=== PATIENT | male | born 1960 | race Hispanic/Latino ===

== ENCOUNTER 2019-12-18 07:06 | Outpatient (CLI) | payer OTHER, SELFPAY ==
[2019-12-18 07:56] LABS: Basophils Percent Auto 0.3 % (0.2-1.2); Eosinophils Absolute Auto 0.1 K/mm3 (0-0.3); Hematocrit 43.5 % (42.0-52.0); Hemoglobin 15.2 g/dL (14.0-18.0); Immature Platelet Fraction Pct 10.6 % (0.9-11.2); Lymphocytes Absolute Auto 1.14 K/mm3 (0.9-3.2); Lymphocytes Percent Auto 33.3 % (18.3-44.2); Mean Corpuscular HGB Conc 34.9 g/dl (32-36); Mean Corpuscular Volume 94.4 fl (80-100); Monocytes Absolute Auto 0.4 K/mm3 (0.1-0.6); Monocytes Percent Auto 11.4 % (2.6-8.5); Neutrophils Absolute Auto 1.8 K/mm3 (1.3-6.7); Platelet Count Result 73 k/mm3 (150-375); Red Blood Count 4.61 M/mm3 (4.6-6.20); Red Cell Distribution Width 12.5 % (11.5-14.5); White Blood Count 3.4 K/mm3 (4.5-10.0)
[2019-12-18 08:07] LABS: Cholesterol 177 mg/dL (0-200); HDL Direct 55 mg/dL; Triglycerides 376 mg/dL (<150)
[2019-12-18 08:19] LABS: LDL Cholesterol Direct 59 mg/dL
== END 2019-12-18 07:07 | disposition home or self-care (01) ==
PROVIDERS: PCP Family Medicine; Visit Provider Family Medicine
DX: D69.6 Thrombocytopenia, unspecified (principal); E11.9 Type 2 diabetes mellitus without complications
CPT/HCPCS: 36415; 80061; 85025; 85055

== ENCOUNTER 2019-12-29 07:31 | Outpatient (CLI) | payer OTHER, SELFPAY ==
--- NOTE | ~2019-12-29 | US_ITS ---
EXAMINATION: US abdomen complete EXAM DATE: 12/29/2019 08:31 INDICATION: Thrombocytopenia. TECHNIQUE: Multiple grayscale and Doppler images of the complete abdomen were obtained (by a technolo gist who performed the scan) and subsequently reviewed. There is no prior study for comparison. FINDINGS: The abdominal aorta is normal in caliber. Visualized portion IVC is patent. The pancreatic head a nd body are normal in appearance. The pancreatic tail is not visualized. There is heterogeneous liver parenchymal echogenicity with nodular contour, consistent with cirrhosis . 4 acoustic window for evaluating the liver. There are no focal liver lesions identified. There i s no evidence of intrahepatic biliary duct dilation. Portal venous flow was seen in the hepatopedal, normal direction and has normal Doppler waveform. Common bile duct measures 3 mm, which is normal. The gallbladder wall is normal in thickness, with ex pected amount of distention. No sonographic evidence of pericholecystic fluid. There is no cholelit hiases. Technologist performing exam reports patient did not demonstrate sonographic Oneill's sign. Please note that this sign is less reliable in patients who have received pain medication. Right kidney: There is normal contour and echogenicity. It measures 12.8 x 6.4 x 6.4 centimeters. There are no focal renal lesions identified. There is no hydronephrosis. Left kidney: There is normal contour and echogenicity. It measures 12.5 x 4.4 x 6.2 centimeters. T here are no focal renal lesions identified. There is no hydronephrosis. The spleen measures 14 centimeters, borderline enlarged. IMPRESSION: 1. Borderline splenomegaly. 2. Cirrhosis. Reviewed, dictated and finalized at location A.
== END 2019-12-29 07:32 | disposition home or self-care (01) ==
PROVIDERS: PCP Family Medicine; Visit Provider Family Medicine
DX: D69.6 Thrombocytopenia, unspecified (principal); K76.0 Fatty (change of) liver, not elsewhere classified; K74.69 Other cirrhosis of liver
CPT/HCPCS: 76700

== ENCOUNTER 2020-01-14 16:18 | Outpatient (CLI) | payer OTHER, SELFPAY ==
[2020-01-14 16:44] LABS: Basophils Percent Auto 0.3 % (0.2-1.2); Eosinophils Absolute Auto 0.1 K/mm3 (0-0.3); Hematocrit 42.6 % (42.0-52.0); Hemoglobin 14.7 g/dL (14.0-18.0); Lymphocytes Absolute Auto 0.93 K/mm3 (0.9-3.2); Lymphocytes Percent Auto 30.9 % (18.3-44.2); Mean Corpuscular HGB Conc 34.5 g/dl (32-36); Mean Corpuscular Hemoglobin 32.5 pg (26-34); Mean Corpuscular Volume 94.2 fl (80-100); Mean Platelet Volume 12.8 fl (7.4-10.4); Monocytes Absolute Auto 0.3 K/mm3 (0.1-0.6); Monocytes Percent Auto 11.3 % (2.6-8.5); Neutrophils Absolute Auto 1.7 K/mm3 (1.3-6.7); Neutrophils Percent Auto 55.5 % (45.5-73.1); Platelet Count Result 85 k/mm3 (150-375); Red Blood Count 4.52 M/mm3 (4.6-6.20); Red Cell Distribution Width 12.6 % (11.5-14.5)
[2020-01-14 16:55] LABS: Alanine Aminotransferase 80 U/L (4-50); Albumin Level 4.2 g/dL (3.5-5.1); Alkaline Phosphatase 116 U/L (38-126); Anion Gap 5 mmol/L (8-16); Aspartate Amino Transferase 76 U/L (17-59); Blood Urea Nitrogen 13 mg/dL (9-20); Calcium 8.9 mg/dL (8.4-10.2); Carbon Dioxide 28 mmol/L (22-30); Chloride 106 mmol/L (98-107); Estimated Glomerular Filt Rate > 60; Glucose 106 mg/dL (75-110); Potassium 4.2 mmol/L (3.4-5.0); Sodium 139 mmol/L (137-145)
== END 2020-01-14 16:19 | disposition home or self-care (01) ==
PROVIDERS: PCP Family Medicine; Visit Provider Physician Assistant
DX: K74.60 Unspecified cirrhosis of liver (principal); D69.6 Thrombocytopenia, unspecified
CPT/HCPCS: 36415; 80053; 85025

== ENCOUNTER 2021-01-21 07:36 | Outpatient (CLI) | payer BC, SELFPAY | END 2021-01-22 | disposition home or self-care (01) | LOC: ANHCSM 07:36 | PROVIDERS: PCP Internal Medicine; Visit Provider Internal Medicine | DX: G47.33 Obstructive sleep apnea (adult) (pediatric) (principal) | CPT/HCPCS: 95810; 99199 ==

== ENCOUNTER 2021-01-29 08:07 | Outpatient (CLI) | payer BC, SELFPAY ==
--- NOTE | 2021-02-25 18:44 | WPDSLEEPSTUD ---
Sleep Study Date of Study: 01/29/21 Ordering Provider: Bhupendra Barr DO Interpreting Physician: Estela Mccabe MD Sleep Study Type: CPAP Titration Height: 1.73 m Weight: 86.674 kg Body Mass Index: 29.0 Neck Circumference (inches): 17 [place]: 14 Reason for Sleep Study Obstructive sleep apnea; hypersomnia Sleep History Vikas Iverson is a 60 year old man with a history of obstructive sleep apnea, and he has used CPAP for over 15 years, currently at 10 cm water pressure. On CPAP, he does not wake at night feeling short of breath, does not wake with heartburn symptoms, loud snoring, sweating excessively at night or noticing his heart beating rapidly at night. He occasionally falls asleep during the day, occasionally falls asleep involuntarily, but never falls asleep while driving. He does not have loss of muscle tone with strong emotion. He does not have problems with daytime functioning due to excessive sleepiness while wearing CPAP. He does not feel paralyzed on waking or falling asleep. He rarely has vivid dream like scenes on waking or falling asleep. He is not afraid to go to sleep, does not have nightmares. He rarely remembers his dreams. He occasionally has racing thoughts. He does not feel sad or depressed. He occasionally feels anxiety. He occasionally has muscle tension, notices parts of his body jerking, and occasionally kicks at night. He does not has uncomfortable or achy feelings in his legs at night. He occasionally has leg pain at night. He denies morning jaw pain. He does not grind his teeth at night. He does not have pain in the day, and is not awakened by pain at night. He rarely wakes up feeling stiff in the morning. He occasionally wakes with sore muscles, never wakes with pain in the neck and spine. He has sexual problems and memory problems. He occasionally wakes up feeling refreshed. He rarely has morning headaches. Normal bedtime is 10-11 p.m. falling asleep in a reasonable amount of time, waking perhaps once overnight. Most of the time this is to use the bathroom. He is able to return to sleep usually. At other times he may get up and watch TV. He wakes in the morning between 5:00 a.m. and 6:00 a.m.. On weekends, he stays awake until midnight, also wakes between 5:00 a.m. and 6:00 a.m.. He estimates getting 5 hours of sleep at night. He takes naps in the afternoon or evening. A short nap is not refreshing. He is drowsy for an hour or longer after waking. He feels better in the evening compared to the other times of day. Habits: He never smoked tobacco. Caffeine 1 large cup of coffee in the morning. Alcohol varies, some days no alcohol and rarely more than one beverage when he does drink. [facility] Past Medical History Medical History Allergies Colon cancer screening Diabetes mellitus type 2, uncontrolled Fatigue Fatty liver HTN (hypertension) Liver cirrhosis secondary to [place] Male hypogonadism [place] (obstructive sleep apnea) Thrombocytopenia Surgical History Surgical History History of arthroscopy of both knees History of repair of anterior cruciate ligament of left knee Family History Family History Father Diabetes mellitus Hypertension Cirrhosis Mother Hypertension Pancreatic cancer Sibling Diabetes mellitus Grandparent Cirrhosis Social History Social History Smoking status: Never smoker Second hand tobacco smoke exposure: No Alcohol intake: former Drinks per week: 2 Alcohol use details: Pt quit drinking alcohol 03/05/2020. Substance use: never Substance use type: does not use Gender identity (if verbalized by the patient): Male Medications Home Medications Medication Instructions Recorded Confirmed Type lancing device with lancets kit #2
[2021-02-25 21:24] VITALS: BMI 29.0
== END 2021-01-30 08:20 | disposition home or self-care (01) ==
LOC: ANHCSM 08:08
PROVIDERS: PCP Internal Medicine; Visit Provider Internal Medicine
DX: G47.33 Obstructive sleep apnea (adult) (pediatric) (principal)
CPT/HCPCS: 95811

== ENCOUNTER 2021-08-24 09:06 | Outpatient (CLI) | payer BC, SELFPAY ==
[2021-08-24 09:38] LABS: Hemoglobin A1C 7.4 % (<5.7)
[2021-08-24 09:39] LABS: Anion Gap 6 mmol/L (8-16); Blood Urea Nitrogen 22 mg/dL (9-20); Calcium 9.1 mg/dL (8.4-10.2); Carbon Dioxide 29 mmol/L (22-30); Chloride 106 mmol/L (98-107); Cholesterol 171 mg/dL (0-200); Estimated Glomerular Filt Rate > 60; Glucose 145 mg/dL (65-110); HDL Direct 64 mg/dL; Potassium 4.2 mmol/L (3.4-5.0); Sodium 141 mmol/L (137-145); Triglycerides 73 mg/dL (<150)
[2021-08-24 09:50] LABS: LDL Cholesterol Direct 66 mg/dL
== END 2021-08-24 09:07 | disposition home or self-care (01) ==
LOC: ANHLAB 09:11
PROVIDERS: PCP Internal Medicine; Visit Provider Internal Medicine
DX: E11.65 Type 2 diabetes mellitus with hyperglycemia (principal); I10 Essential (primary) hypertension
CPT/HCPCS: 36415; 80048; 80061; 83036

== ENCOUNTER → 2022-05-23 14:28 | Outpatient (CLI) | payer BC, SELFPAY ==
--- NOTE | ~2022-05-23 | XR_ITS ---
Clinical Indication: Cough PA and lateral views of the chest: Comparison: None Findings: The lungs are clear, without evidence of focal consolidation or pleural effusion. Cardiome diastinal silhouette is within normal limits. Bones and soft tissues are unremarkable. Impression: Normal chest. Reviewed, dictated and finalized at [facility]. ER GRINDER Impression: Normal chest.
== END ==
PROVIDERS: PCP Clinical Nurse Specialist; Visit Provider Clinical Nurse Specialist
DX: R05.9 Cough, unspecified (principal); R06.02 Shortness of breath
CPT/HCPCS: 71046

== ENCOUNTER 2022-10-22 08:38 | Outpatient (CLI) | payer BC, SELFPAY ==
[2022-10-22 09:04] LABS: Basophils Percent Auto 0.8 % (0.2-1.2); Eosinophils Absolute Auto 0.1 K/mm3 (0-0.3); Hematocrit 40.9 % (42.0-52.0); Hemoglobin 13.8 g/dL (14.0-18.0); Immature Platelet Fraction Pct 13.4 % (0.9-11.2); Lymphocytes Absolute Auto 0.82 K/mm3 (0.9-3.2); Lymphocytes Percent Auto 33.3 % (18.3-44.2); Mean Corpuscular HGB Conc 33.7 g/dl (32-36); Mean Corpuscular Hemoglobin 30.9 pg (26-34); Mean Corpuscular Volume 91.5 fl (80-100); Mean Platelet Volume 12.8 fl (7.4-10.4); Monocytes Absolute Auto 0.3 K/mm3 (0.1-0.6); Monocytes Percent Auto 13.4 % (2.6-8.5); Neutrophils Absolute Auto 1.2 K/mm3 (1.3-6.7); Neutrophils Percent Auto 50.5 % (45.5-73.1); Platelet Count Result 74 k/mm3 (150-375); Red Blood Count 4.47 M/mm3 (4.6-6.20); Red Cell Distribution Width 13.1 % (11.5-14.5); White Blood Count 2.5 K/mm3 (4.5-10.0)
[2022-10-22 09:40] LABS: Alanine Aminotransferase 76 U/L (6-50); Alkaline Phosphatase 187 U/L (38-126); Anion Gap 5 mmol/L (8-16); Aspartate Amino Transferase 73 U/L (17-59); Blood Urea Nitrogen 19 mg/dL (9-20); Calcium 8.7 mg/dL (8.4-10.2); Carbon Dioxide 31 mmol/L (22-30); Chloride 104 mmol/L (98-107); Cholesterol 172 mg/dL (0-200); Estimated Glomerular Filt Rate > 60; Glucose 226 mg/dL (65-110); HDL Direct 62 mg/dL; Potassium 4.1 mmol/L (3.4-5.0); Sodium 140 mmol/L (137-145); Triglycerides 132 mg/dL (<150)
[2022-10-22 09:51] LABS: LDL Cholesterol Direct 79 mg/dL
[2022-10-22 10:09] LABS: Prostate Specific Antigen 0.7 ng/mL (< OR = 4.0)
[2022-10-22 12:33] LABS: Hemoglobin A1C 9.2 % (<5.7)
[2022-10-27 10:11] LABS: Apolipoprotein B 79 mg/dL (<90)
== END 2022-10-22 08:39 | disposition home or self-care (01) ==
LOC: ANHLAB 08:39
PROVIDERS: PCP Internal Medicine; Visit Provider Internal Medicine
DX: E11.65 Type 2 diabetes mellitus with hyperglycemia (principal); K76.0 Fatty (change of) liver, not elsewhere classified; I10 Essential (primary) hypertension; Z12.5 Encounter for screening for malignant neoplasm of prostate
CPT/HCPCS: 36415; 80053; 80061; 82172; 83036; 84153; 85025; 85055; G0103

== ENCOUNTER 2025-03-06 12:57 | Outpatient (NON) | payer BC, SELFPAY ==
--- OUTSIDE RECORDS SUMMARY | 2025-03-06 13:03 | XMS_ITS | Clinical Summary ---
Author Organization [address] Address [address] [place] [address] Care Team Providers Care Needle Loom Operator Name Role Phone Dion Hopper MD Unavailable [phone] Bhupendra Barr DO Primary Care Provider [phone] Deepali Carl RN Unavailable [phone] Marybeth Hernandez MD Unavailable [phone] Radha Carlson RN Unavailable Unavailable Phan Mccann MD Unavailable [phone] Allergies No known active allergies Medications fluticasone propionate (Flonase) 50 mcg/actuation nasal spray Administer 2 sprays into each nostril as needed for rhinitis or allergies 06/20/19 24 Active blood-glucose meter kitIndications :DM Use to test blood glucose levels up to 4 times daily. 1 kit 12/18/19 24 Active lancets 33 gauge miscIndication s:DM Use to test blood glucose levels up to 4 times daily. 200 each 12/18/19 24 Active blood glucose diagnostic stripIndicatio ns:DM Use to test blood glucose levels up to 4 times daily. 200 strip 12/18/19 24 Active testosterone cypionate (DEPO-TESTOTER ONE) 200 mg/mL injectionIndic ations:Androge n Deficiency Inject 1 mL into the muscle as instructed once a week tuesdays 10/01/20 24 Active insulin glargine (SEMGLEE) 100 unit/mL (3 mL) pen for injectionIndic ations:DM Inject 15 Units under the skin daily 15 mL 1 07/11/19 25 Active BD Regular Bevel [facility] 18 gauge x 1 1/2 needleIndicati ons:DM USE WEEKLY 05/31/20 24 Active BD Luer-Dolores Syringe 3 mL 23 gauge x 1 1/2 syringeIndicat ions:DM USE WEEKLY 06/19/19 25 Active BD Ultra-Fine Mini Pen Needle 31 gauge x 08/18 needleIndicati ons:DM DIRECTED FOUR TIMES DAILY 06/19/19 25 Active alcohol swabs pads, medicatedIndic ations:DM Take by mouth 08/19/19 25 Active ferrous sulfate 325 mg (65 mg of elemental iron) tabletIndicati ons:Iron Deficiency Anemia Take 1 tablet by mouth daily with breakfast Active acetaminophen 500 mg capsuleIndicat ions:Fever,Jolie n Take 2 capsules (1,000 mg total) by mouth every 6 (six) hours as needed for pain 09/05/19 25 Active tacrolimus XR (ENVARSUS XR) 1 mg tablet extended release 24 hrIndications: Prevention of Kidney Transplant Rejection Take 2 tablets (2 mg total) by mouth daily 60 tablet 11 11/15/19 25 026 Active tamsulosin (FLOMAX) 0.4 mg extended release capsuleIndicat ions:Nocturia Take 1 capsule (0.4 mg total) by mouth nightly 30 capsule 3 11/19/19 25 Active blood-glucose sensor (Dexcom G7 Sensor) deviceIndicati ons:Type 2 diabetes mellitus without complication, with long-term current use of insulin (HCC) Dexcom G7 - Use one sensor every 10 days. 3 each 11/26/19 25 Active dulaglutide (Trulicity) 4.5 mg/0.5 mL pen injectorIndica tions:Type 2 diabetes mellitus without complication, with long-term current use of insulin (HCC) Inject 0.5 mL (4.5 mg total) under the skin once a week 2 mL 5 11/26/19 25 Active fluconazole (DIFLUCAN) 200 mg tabletIndicati ons:Abdominal/ Pelvic Infection Take 1 tablet (200 mg total) by mouth daily 90 tablet 3 12/18/19 25 026 Active mirabegron ER (Myrbetriq) 25 mg tablet extended release 24 hrIndications: Increased Urinary Frequency Take 1 tablet (25 mg total) by mouth daily 30 tablet 3 01/02/20 25 025 Active insulin lispro (HumaLOG, ADMELOG) 100 unit/mL pen for injectionIndic ations:Type 2 diabetes mellitus without complication, with long-term current use of insulin ([facility]) INJECT 8 UNITS UNDER THE SKIN THREE TIMES DAILY BEFORE MEALS PLUS SLIDING SCALE DIRECTED. MAXIMUM DAILY DOSE OF 50 UNITS 45 mL 1 01/03/20 25 Active lisinopriL (PRINIVIL,ZEST RIL) 10 mg tabletIndicati ons:hypertensi on Take 1 tablet (10 mg total) by mouth daily 30 tablet 2 01/07/20 25 Active bisacodyl EC (DULCOLAX EC) 5 mg EC tabletIndicati ons:constipati on Take 2 tablets (10 mg total) by mouth daily for 7 days 14 tablet 02/18/20 25 Active oxyBUTYnin (DITROPAN) 5 mg tablet Take 1 tablet (5 mg total) by mouth 3 (three) times a day for 5 days 15 tablet 02/18/20 25 Active solifenacin (VESIcare) 5 mg tablet Take 1 tablet (5 mg total) by mouth daily for 7 days 7 tablet 02/18/20 25 Active aspirin 81 mg enteric coated tabletIndicati ons:prevention of thrombosis Take 1 tablet (81 mg total) by mouth daily 90 tablet 3 03/03/20 25 026 Active pen needle, diabetic (Ultra-Fine Pen Needle) 31 gauge x 5/16 needleIndicati ons:Type 2 diabetes mellitus without complication, with long-term current use of insulin ([facility]) USE TO INJECT INSULIN FOUR TIMES DAILY DIRECTED 100 each 3 03/05/20 25 Active atorvastatin (LIPITOR) 10 mg tabletIndicati ons:hyperlipid emia Take 1 tablet by mouth every morning 025 Discontinued([employer] Reported) aspirin 81 mg enteric coated tabletIndicati ons:prevention of thrombosis Take 1 tablet (81 mg total) by mouth daily 90 tablet 3 02/23/20 24 025 Discontinued(Re order) pen needle, diabetic (BD Ultra-Fine Short Pen Needle) 31 gauge x 5/16 needleIndicati ons:DM Use to inject insulin 4 times daily as directed. 400 each 1 06/20/19 25 025 Discontinued ciprofloxacin (CIPRO) 500 mg tablet Take 1 tablet (500 mg total) by mouth 2 (two) times a day for 7 days 14 tablet 02/18/20 25 025 Active Problems Patient Care Coordination No te Formatting of this note migh t be different from the original. SURGEON Dr. Yris Fulton is financial services professional covering this patient. 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 Pt had been offered IR drain or aspiration but was declined at the time by pt - CT abd/pelvis this admission wo cotnrast showing presence of gas, more concerning for infected hematoma - MIS consulted and planning on mesh salvage with antibiotics. They will reassess patient in OP setting in few weeks. - GILLIAN drain placed with IR on 10/21. Cultures growing MSSA. And S. Intermedius. Id recommending cefazolin for 2-3 weeks in order to salvage mesh with ID f/u. PICC placed, CM assistance for HH IV ABx. - Will discharge with GILLIAN drain in place. IR f/u scheduled for 11/04. Assessment & Plan (10/24/2024 7:32 PM CDT): OLT 06/2023 c/b incision/ventral hernia s/p repair 09/02 with nonabsorbable mesh. He describes fevers beginning around this time without incisional drainage, overyling skin changes. Imaging 09/30 with possible post-op seroma which MIS did not feel c/w infection. Within past 48hr has developed worsened fevers (freq>degree) with warmth and worsened pain in RUQ beneath incision. CT here with worsened gas and wall thickening c/f infection. Unclear how much this is contributing to overall recurrent fevers. Notably fevers did not improve with Augmentin. Possible indolent infection with iso mesh, fungal, fastidious organism given timeline; Cx now with S.aureus, Staph intermedius. MIS planning for antibiotics and drainage with clinical re-evaluation. Plan for ancef with reimaging and ID clinic followup Assessment & Plan (10/24/2024 3:47 PM CDT): Has been known since hernia repair in 08/2024. Pt had been offered IR drain or aspiration but was declined at the time by pt - CT abd/pelvis this admission wo cotnrast showing presence of gas, more concerning for infected hematoma - MIS consulted and planning on mesh salvage with antibiotics. They will reassess patient in OP setting in few weeks. - GILLIAN drain placed with IR on 10/21. Cultures growing MSSA. And S. Intermedius. Both organisms are pansensitive. Will await final ID recs before de-escalating regimen. - Will discharge with GILLIAN drain in place. IR f/u scheduled for 11/04. Assessment & Plan (10/23/2024 4:20 PM CDT): Has been known since hernia repair in 08/2024. Pt had been offered IR drain or aspiration but was declined at the time by pt - CT abd/pelvis this admission wo cotnrast showing presence of gas, more concerning for infected hematoma - MIS consulted and planning on mesh salvage with antibiotics. They will reassess patient in OP setting in few weeks. - GILLIAN drain placed with IR on 10/21. Cultures growing S. Aureus. And S. Intermedius - Per ID, continue dapto and zosyn pending culture results. Assessment & Plan (10/22/2024 2:51 PM CDT): OLT 06/2023 c/b incision/ventral hernia s/p repair 09/02 with nonabsorbable mesh. He describes fevers beginning around this time without incisional drainage, overyling skin changes. Imaging 09/30 with possible post-op seroma which MIS did not feel c/w infection. Within past 48hr has developed worsened fevers (freq>degree) with warmth and worsened pain in RUQ beneath incision. CT here with worsened gas and wall thickening c/f infection. Unclear how much this is contributing to overall recurrent fevers. Notably fevers did not improve with Augmentin. Possible indolent infection with iso mesh, fungal, fastidious organism given timeline; Cx now with S.aureus, Staph intermedius. On zosyn and dapto. Assessment & Plan (10/22/2024 3:18 PM CDT): Has been known since hernia repair in 08/2024. Pt had been offered IR drain or aspiration but was declined at the time by pt - CT abd/pelvis this admission wo cotnrast showing presence of gas, more concerning for infected hematoma - MIS consulted, GILLIAN drain placed with IR on 10/21. Cultures growing S. Aureus. And S. Intermedius. - Per ID, start daptomycin pending culture results. Assessment & Plan (10/21/2024 12:11 PM CDT): OLT 06/2023 c/b incision/ventral hernia s/p repair 09/02 with nonabsorbable mesh. He describes fevers beginning around this time without incisional drainage, overyling skin changes. Imaging 09/30 with possible post-op seroma which MIS did not feel c/w infection. Within past 48hr has developed worsened fevers (freq>degree) with warmth and worsened pain in RUQ beneath incision. CT here with worsened gas and wall thickening c/f infection. Unclear how much this is contributing to overall recurrent fevers. Notably fevers did not improve with Augmentin. Possible indolent infection with S.epi iso mesh, fungal, fastidious organism given timeline. MIS recommending IR for drain vs aspiration. Clinically stable while awaiting Cx data Assessment & Plan (10/21/2024 10:59 AM CDT): Has been known since hernia repair in 08/2024. Pt had been offered IR drain or aspiration but was declined at the time by pt - CT abd/pelvis this admission wo cotnrast showing presence of gas, more concerning for infected hematoma - MIS consulted, plan for IR drainage today, will follow culture Assessment & Plan (10/20/2024 8:59 AM CDT): Has been known since hernia repair in 08/2024. Pt had been offered IR drain or aspiration but was declined at the time by pt - CT abd/pelvis this admission wo cotnrast showing presence of gas, more concerning for infected hematoma - MIS consult for consideration of washout vs IR evaluation given pt more symptoms and CT findings Assessment & Plan (10/19/2024 2:58 PM CDT): OLT 06/2023 c/b incision/ventral hernia s/p repair 09/02 with nonabsorbable mesh. He describes fevers beginning around this time without incisional drainage, overyling skin changes. Imaging 09/30 with possible post-op seroma which MIS did not feel c/w infection. Within past 48hr has developed worsened fevers (freq>degree) with warmth and worsened pain in RUQ beneath incision. CT here with worsened gas and wall thickening c/f infection. Unclear how much this is contributing to overall recurrent fevers. Notably fevers did not improve with Augmentin. Possible indolent infection with S.epi iso mesh, fungal, fastidious organism given timeline. Assessment & Plan (10/19/2024 1:02 PM CDT): Has been known since hernia repair in 08/2024. Pt had been offered IR drain or aspiration but was declined at the time by pt - CT abd/pelvis this admission wo cotnrast showing presence of gas, more concerning for infected hematoma - likely needs repeat IR evaluation for drainage/culture - appreciate ID recs CrAg pos, fevers 10/18/2024 Assessment & Plan (10/25/2024 6:09 PM CDT): Presented to the hospital with a complain of low grade fevers with 100.7, shortness of breath ,cough with yellow phlegm discharge and right upper quadrant/epigastric abdominal pain. Was seen by Infectious Disease team on 10/15 and recommended to come to hospital for lumbar puncture for possible HOOF TRIMMER involvement of cryptococcus infection in the setting of positive cryptococcal antigen results. Could also be related to abodminal fluid collection as below Cryptococcus Serum Antigen 10/15/2024 : Positive Coccidiodes 10/15/2024 : Negative Histoplasma Urine Antigen 10/15/2024 : Negative - CT head 10/20 negative - EKG with QtC 445 - Crypto CSF Ag negative, fungal culture pending. Staph epi growing in 1 CSF culture. Suspect contaminant, will d/w ID. - Continue fluconazole on d/c, anticipate duration 6-12 months, ID f/u OP Discharge home today with home health Assessment & Plan (10/24/2024 7:32 PM CDT): P/t ID clinic 10/15 with several weeks of fevers. Overall high concern for subacute process. Recent imaging had also shown pulmonary nodule prompting concern for fungal etiology given this as well as lung transplant. CrAg positive 1:10. hCT wnl. He is admitted for LP to assess for cryptococcal meningitis.CSF CrAg (-). Plan for several months fluc Assessment & Plan (10/24/2024 3:47 PM CDT): Presented to the hospital with a complain of low grade fevers with 100.7, shortness of breath ,cough with yellow phlegm discharge and right upper quadrant/epigastric abdominal pain. Was seen by Infectious Disease team on 10/15 and recommended to come to hospital for lumbar puncture for possible HOOF TRIMMER involvement of cryptococcus infection in the setting of positive cryptococcal antigen results. Could also be related to abodminal fluid collection as below Cryptococcus Serum Antigen 10/15/2024 : Positive Coccidiodes 10/15/2024 : Negative Histoplasma Urine Antigen 10/15/2024 : Negative - CT head 10/20 negative - EKG with QtC 445 - Crypto CSF Ag negative, fungal culture pending. Staph epi growing in 1 CSF culture. Suspect contaminant, will d/w ID. - Continue fluconazole, ID following Assessment & Plan (10/23/2024 4:20 PM CDT): Presented to the hospital with a complain of low grade fevers with 100.7, shortness of breath ,cough with yellow phlegm discharge and right upper quadrant/epigastric abdominal pain. Was seen by Infectious Disease team on 10/15 and recommended to come to hospital for lumbar puncture for possible HOOF TRIMMER involvement of cryptococcus infection in the setting of positive cryptococcal antigen results. Could also be related to abodminal fluid collection as below Cryptococcus Serum Antigen 10/15/2024 : Positive Coccidiodes 10/15/2024 : Negative Histoplasma Urine Antigen 10/15/2024 : Negative - CT head 10/20 negative - EKG with QtC 445 - Crypto CSF Ag negative, fungal culture pending - Continue fluconazole, ID following Assessment & Plan (10/22/2024 2:30 PM CDT): P/t ID clinic 10/15 with several weeks of fevers. Overall high concern for subacute process. Recent imaging had also shown pulmonary nodule prompting concern for fungal etiology given this as well as lung transplant. CrAg positive 1:10. hCT wnl. He is admitted for LP to assess for cryptococcal meningitis. Pending result from 10/22, we will discuss utility of L-AmB versus fluconazole therapy. Currently on fluconazole Assessment & Plan (10/22/2024 3:18 PM CDT): Presented to the hospital with a complain of low grade fevers with 100.7, shortness of breath ,cough with yellow phlegm discharge and right upper quadrant/epigastric abdominal pain. Was seen by Infectious Disease team on 10/15 and recommended to come to hospital for lumbar puncture for possible HOOF TRIMMER involvement of cryptococcus infection in the setting of positive cryptococcal antigen results. Could also be related to abodminal fluid collection as below Reports mild pain at his neck area with head/neck movements sometimes Cryptococcus Serum Antigen 10/15/2024 : Positive Coccidiodes 10/15/2024 : Negative Histoplasma Urine Antigen 10/15/2024 : Negative - CT head 10/20 negative - EKG with QtC 445 - LP today to rule out cryptococcal meningitis - zosyn, dapto, fluconazole Assessment & Plan (10/21/2024 12:11 PM CDT): P/t ID clinic 10/15 with several weeks of fevers. Overall high concern for subacute process. Recent imaging had also shown pulmonary nodule prompting concern for fungal etiology given this as well as lung transplant. CrAg positive 1:10. hCT wnl. He is admitted for LP to assess for cryptococcal meningitis. Pending this result, we will discuss utility of L-AmB versus fluconazole therapy. Would start fluconazole today, as this will be part of treatment for either HOOF TRIMMER infection or isolated antigenemia Assessment & Plan (10/21/2024 10:59 AM CDT): Presented to the hospital with a complain of low grade fevers with 100.7, shortness of breath ,cough with yellow phlegm discharge and right upper quadrant/epigastric abdominal pain. Was seen by Infectious Disease team on 10/15 and recommended to come to hospital for lumbar puncture for possible HOOF TRIMMER involvement of cryptococcus infection in the setting of positive cryptococcal antigen results. Could also be related to abodminal fluid collection as below Reports mild pain at his neck area with head/neck movements sometimes Cryptococcus Serum Antigen 10/15/2024 : Positive Coccidiodes 10/15/2024 : Negative Histoplasma Urine Antigen 10/15/2024 : Negative - CT head 10/20 negative - EKG with QtC 445 Plan Pending LP to rule out possible HOOF TRIMMER involvement of cryptococcus infection, IR and procedure team will both be attempting today as able, may happen tomorrow given IR drainage of fluid collection tomorrow Assessment & Plan (10/20/2024 8:59 AM CDT): Presented to the hospital with a complain of low grade fevers with 100.7, shortness of breath ,cough with yellow phlegm discharge and right upper quadrant/epigastric abdominal pain. Was seen by Infectious Disease team on 10/15 and recommended to come to hospital for lumbar puncture for possible HOOF TRIMMER involvement of cryptococcus infection in the setting of positive cryptococcal antigen results. Could also be related to abodminal fluid collection as below Reports mild pain at his neck area with head/neck movements sometimes Cryptococcus Serum Antigen 10/15/2024 : Positive Coccidiodes 10/15/2024 : Negative Histoplasma Urine Antigen 10/15/2024 : Negative - CT head 10/20 negative Plan Pending LP to rule out possible HOOF TRIMMER involvement of cryptococcus infection, likely Monday and disucssed with radiology, studies ordered - EKG today Hold tx for now as pt stable Assessment & Plan (10/19/2024 2:58 PM CDT): P/t ID clinic 10/15 with several weeks of fevers. Overall high concern for subacute process. Recent imaging had also shown pulmonary nodule prompting concern for fungal etiology given this as well as lung transplant. CrAg positive 1:10. He is admitted for LP to assess for cryptococcal meningitis. Would also obtain hCT. Pending this result, we will discuss utility of L-AmB versus fluconazole therapy. Assessment & Plan (10/19/2024 1:02 PM CDT): Presented to the hospital with a complain of low grade fevers with 100.7, shortness of breath ,cough with yellow phlegm discharge and right upper quadrant/epigastric abdominal pain. Was seen by Infectious Disease team on 10/15 and recommended to come to hospital for lumbar puncture for possible HOOF TRIMMER involvement of cryptococcus infection in the setting of positive cryptococcal antigen results. Could also be related to abodminal fluid collection as below Reports mild pain at his neck area with head/neck movements sometimes Cryptococcus Serum Antigen 10/15/2024 : Positive Coccidiodes 10/15/2024 : Negative Histoplasma Urine Antigen 10/15/2024 : Negative Afebrile , no leukocytosis on admission Plan Follow aspergillus results sent on 10/15/2024 Follow Histoplasma Antibody results sent on 10/15/2024 Will send blood cultures Will get TTE per Infectious Disease team's recommendations once LP is done Pending LP to rule out possible HOOF TRIMMER involvement of cryptococcus infection, likely Monday after discussion with radiology given pt clinically stability Will consult infectious disease transplant team while inpatient for further recommendations in management Assessment & Plan (10/19/2024 4:10 AM CDT): Presented to the hospital with a complain of low grade fevers with 100.7, shortness of breath ,cough with yellow phlegm discharge and right upper quadrant/epigastric abdominal pain. Was seen by Infectious Disease team on 10/15 and recommended to come to hospital for lumbar puncture for possible HOOF TRIMMER involvement of cryptococcus infection in the setting of positive cryptococcal antigen results Reports mild pain at his neck area with head/neck movements sometimes Cryptococcus Serum Antigen 10/15/2024 : Positive Coccidiodes 10/15/2024 : Negative Histoplasma Urine Antigen 10/15/2024 : Negative Afebrile , no leukocytosis on admission Plan Follow aspergillus results sent on 10/15/2024 Follow Histoplasma Antibody results sent on 10/15/2024 Will send blood cultures Will get TTE per Infectious Disease team's recommendations Pending LP to rule out possible HOOF TRIMMER involvement of cryptococcus infection Follow CBC Monitor vitals Will get CT Abdomen and Pelvis given abdominal pain started this week with spiked fevers Will get UA with reflex urine culture Will consult infectious disease transplant team while inpatient for further recommendations in management History of incisional hernia repair 09/18/2024 Encounter for long-term (cur rent) use of high-risk medication 06/19/2024 Type 2 diabetes mellitus wit h stage 3a chronic kidney disease, with long-term current use of insulin 06/19/2024 Incarcerated incisional hernia following transpl ant 05/27/2024 Primary hypogonadism in male 04/19/2024 Anemia 04/19/2024 Assessment & Plan (10/25/2024 8:11 AM CDT): Hemoglobin stable at 8-10 range No signs of bleeding Likely mixed etiology of anemia, though has low serum iron and Tsat, so will give IV dextran on 10/23 Assessment & Plan (10/24/2024 3:47 PM CDT): Hemoglobin stable at 8-10 range No signs of bleeding Likely mixed etiology of anemia, though has low serum iron and Tsat, so will give IV dextran on 10/23 Assessment & Plan (10/23/2024 7:47 AM CDT): Hemoglobin stable at 8-10 range No signs of bleeding Follow CBC Assessment & Plan (10/22/2024 7:59 AM CDT): Hemoglobin stable at 8-10 range No signs of bleeding Follow CBC Assessment & Plan (10/21/2024 10:59 AM CDT): Hemoglobin stable at 8-10 range No signs of bleeding Follow CBC Assessment & Plan (10/20/2024 8:59 AM CDT): Hemoglobin stable at 8-10 range No signs of bleeding Follow CBC Assessment & Plan (10/19/2024 1:02 PM CDT): Hemoglobin stable at 8-10 range No signs of bleeding Follow CBC Assessment & Plan (10/18/2024 10:11 PM CDT): Hemoglobin stable at 8-10 range No signs of bleeding Follow CBC Body mass index (BMI) of 29.0 to 29.9 in adult 0 09/04/2023 Liver transplant recipient 06/15/2023 Assessment & Plan (10/25/2024 6:09 PM CDT): 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 On tacro. 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 GFR 60-89 ml/min EGFR Routine 01/31/2025 7:25 AM CDT Encounter for immunosuppression management after liver transplant (HCC) Liver transplant recipient (HCC) DIFFERENTIAL AUTO Routine 01/31/2025 7:2 5 AM CDT Encounter for immunosuppression management after liver transplant (HCC) Liver transplant recipient (HCC) TACROLIMUS LEVEL, TROUGH Routine 01/31/2025 7:25 AM CDT Encounter for immunosuppression management after liver transplant (HCC) Liver transplant recipient (HCC) GAMMA GT Routine 01/31/2025 7:25 AM CDT Encounter for immunosuppression management after liver transplant (HCC) Liver transplant recipient (HCC) COMPREHENSIVE METABOLIC PANEL Routine 01/31/2025 7:25 AM CDT Encounter for immunosuppression management after liver transplant (HCC) Liver transplant recipient (HCC) CBC WITH AUTO DIFFERENTIAL Routine 01/31/2025 7:25 AM CDT Encounter for immunosuppression management after liver transplant (HCC) Liver transplant recipient (HCC) EGFR Routine 01/06/2025 12:31 PM CDT NED (acute kidney injury) URINALYSIS, MICROSCOPIC ONLY Routine 01/06/2025 12:31 PM CDT Proteinuria, unspecified type DIFFERENTIAL AUTO Routine 01/06/2025 12:31 PM CDT Anemia, unspecified type CYSTATIN C Routine 01/06/2025 12:31 PM CDT Elevated serum creatinine Albuminuria CBC WITH AUTO DIFFERENTIAL Routine 01/06/2025 12:31 PM CDT Anemia, unspecified type RENAL FUNCTION PANEL Routine 01/06/2025 12:31 PM CDT NED (acute kidney injury) ALBUMIN CREATININE RATIO, URINE Routine 01/06/2025 12:31 PM CDT Proteinuria, unspecified type PROTEIN / CREATININE RATIO, URINE, RANDOM Routine 01/06/2025 12:31 PM CDT Proteinuria, unspecified type URINALYSIS AND REFLEX TO MICROSCOPIC Routine 01/06/2025 12:31 PM CDT Proteinuria, unspecified type EGFR Routine 12/30/2024 7:32 AM CDT Encounter for immunosuppression management after liver transplant (HCC) Liver transplant recipient (HCC) DIFFERENTIAL AUTO Routine 12/30/2024 7:3 2 AM CDT Encounter for immunosuppression management after liver transplant (HCC) Liver transplant recipient (HCC) CBC WITH AUTO DIFFERENTIAL Routine 12/30/2024 7:32 AM CDT Encounter for immunosuppression management after liver transplant (HCC) Liver transplant recipient (HCC) COMPREHENSIVE METABOLIC PANEL Routine 12/30/2024 7:32 AM CDT Encounter for immunosuppression management after liver transplant (HCC) Liver transplant recipient (HCC) GAMMA GT Routine 12/30/2024 7:32 AM CDT Encounter for immunosuppression management after liver transplant (HCC) Liver transplant recipient (HCC) TACROLIMUS LEVEL, TROUGH Routine 12/30/2024 7:32 AM CDT Encounter for immunosuppression management after liver transplant (HCC) Liver transplant recipient (HCC) EGFR Routine 12/19/2024 8:45 AM CDT Encounter for immunosuppression management after liver transplant (HCC) Liver transplant recipient (HCC) DIFFERENTIAL AUTO Routine 12/19/2024 8:4 5 AM CDT Encounter for immunosuppression management after liver transplant (HCC) Liver transplant recipient (HCC) CBC WITH AUTO DIFFERENTIAL Routine 12/19/2024 8:45 AM CDT Encounter for immunosuppression management after liver transplant (HCC) Liver transplant recipient (HCC) COMPREHENSIVE METABOLIC PANEL Routine 12/19/2024 8:45 AM CDT Encounter for immunosuppression management after liver transplant (HCC) Liver transplant recipient (HCC) GAMMA GT Routine 12/19/2024 8:45 AM CDT Encounter for immunosuppression management after liver transplant (HCC) Liver transplant recipient (HCC) TACROLIMUS LEVEL, TROUGH Routine 12/19/2024 8:45 AM CDT Encounter for immunosuppression management after liver transplant (HCC) Liver transplant recipient (HCC) CT ABDOMEN PELVIS WO CONTRAST Schedule Routine, Read Routine (OP Routine) 12/11/2024 12:38 PM CDT Abdominal fluid collection AMBULATORY INVESTIGATION REFERRAL TO [facility]ION Routine 12/11/2024 9:41 AM CDT Acute peritonitis (HCC) LIPID PANEL Routine 09/02/2024 10:50 PM CDT POCT HEMOGLOBIN A1C Routine 08/20/2024 9 :02 AM CDT HEPATITIS C RNA, QUANTITATIVE, PCR Routine 07/13/2023 PSA SCREEN Routine 04/05/2023 7:45 AM CDT Hepatocellular carcinoma (HCC) from Last 3 Months or Most Recently Relevant to Health Maintenance Results * eGFR (03/04/2025 7:24 AM CDT) eGFR 69 >=60 mL/min/1. 73 m2 Comment: Interpretive Data Reference Interval Normal >/= 90 mL/min/1.73m2 Mildly decreased* 60 - 89 mL/min/1.73m2 Mildly to moderately decreased 45 - 59 mL/min/1.73m2 Moderately to severely decreased 30 - 44 mL/min/1.73m2 Severely decreased 15 - 29 mL/min/1.73m2 Kidney Failure < 15 mL/min/1.73m2 *Relative to young adult level Estimated glomerular filtration rate is determined by the 2020 CKD-EPI equation recommended by the National Kidney Foundation (A Unifying Approach to GFR Estimation: Recommendations of the NKF-ASK Task Force on Reassessing the Inclusion of Race in Diagnosing Kidney Disease, JASN 2020). The CKD-EPI equation should not be used for patients with unstable renal function and has not been validated in children and those over 70. Current interpretive data was last reviewed 2021. Testing performed by: [address] [address] Blood 03/04/2025 7:24 AM CDT 03/04/2025 8:48 AM CDT us Phillip Munroe MD LAB BLOOD ORDERABLES F inal Result [facility] [address] [facility] Department [place] [address] * Differential, auto (03/04/2025 7:24 AM CDT) Neutrophil abs 2.75 1.50 - 6.50 K/cumm Comment:Testing performed by : [address] [address] Imm gran abs 0.02 0.00 - 0.10 K/cumm MICHAEL EVANGELISTA Comment:Testing performed by : [address] [place]., [address] Lymphocyte abs 0.91 0.80 - 3.30 K/cumm CERMISTY Comment:Testing performed by : [address] [address] Monocyte abs 0.48 0.20 - 0.80 K/cumm CERMISTY Comment:Testing performed by : [address], [place]., [address] Eosinophil abs 0.11 0.00 - 0.50 K/cumm [facility] Comment:Testing performed by : [address], [place]., [address] Basophil abs 0.01 0.00 - 0.10 K/cumm [facility] Comment:Testing performed by : [address] [address] Neutrophil pct 64.2 % [facility] Comment: Interpretive Data Percent cell count reference ranges are not reported, since discordance with absolute values may lead to misinterpretation of CBC data. Current Interpretive Data was last revised on 2017. Testing performed by: [address] [address] Imm gran pct 0.5 % [facility] Comment: Interpretive Data Percent cell count reference ranges are not reported, since discordance with absolute values may lead to misinterpretation of CBC data. Current Interpretive Data was last revised on 2017. Testing performed by: [address] [address] Lymphocyte pct 21.3 % [facility] Comment: Interpretive Data Percent cell count reference ranges are not reported, since discordance with absolute values may lead to misinterpretation of CBC data. Current Interpretive Data was last revised on 2017. Testing performed by: [address] [address] Monocyte pct 11.2 % CERNER Comment: Interpretive Data Percent cell count reference ranges are not reported, since discordance with absolute values may lead to misinterpretation of CBC data. Current Interpretive Data was last revised on 2017. Testing performed by: [address] [address] Eosinophil pct 2.6 % CERNER Comment: Interpretive Data Percent cell count reference ranges are not reported, since discordance with absolute values may lead to misinterpretation of CBC data. Current Interpretive Data was last revised on 2017. Testing performed by: [address] [address] Basophil pct 0.2 % MICHAEL EVANGELISTA Comment: Interpretive Data Percent cell count reference ranges are not reported, since discordance with absolute values may lead to misinterpretation of CBC data. Current Interpretive Data was last revised on 2017. Testing performed by: [address] [address] Blood 03/04/2025 7:24 AM CDT 03/04/2025 8:54 AM CDT Phillip Munroe MD LAB BLOOD ORDERABLES F inal Result Performing Organization Address [facility] de Phone Number [place] [phone] [facility] [place] [address] * Tacrolimus level trough (03/04/2025 7:24 AM CDT) [facility] Signature Tacrolimus trough 4.3 ng/mL Comment: Interpretive Data Testing performed by liquid chromatography-tandem mass spectrometry. Therapeutic concentrations vary depending on type of transplanted organ and time elapsed since transplant. Typical trough concentrations range from 5-15 ng/mL. This test was developed and its performance characteristics determined by the [facility] consistent with CLIA requirements. This test has not been cleared or approved by the [place] Food and Drug administration. Current interpretive data last reviewed 2019. Testing performed by: [facility], [address] [facility], [place]., [address] Blood 03/04/2025 7:24 AM CDT 03/04/2025 11:07 AM CDT Phillip Munroe MD LAB BLOOD ORDERABLES F inal Result Performing Organization Address [facility] Co de Phone Number [place] [phone] [facility] [place] [address] * (ABNORMAL) CBC with auto differential (03/04/2025 7:24 AM CDT) [facility] Signature WBC 4.28 3.80 - 9.90 K/cumm Comment:Testing performed by : [address] [address] Hgb 12.0(L) 13.0 - 17.5 g/dL MICHAEL Comment:Testing performed by : [address], [address] Hct 36.6(L) 38.9 - 50.3 % MICHEAL Comment:Testing performed by : [address], [address] Plt 161 150 - 400 K/cumm MICHAEL Comment:Testing performed by : [address], [address] MPV 11.9 9.1 - 12.3 fL MICHAEL Comment:Testing performed by : [address], [address] RBC 4.04(L) 4.30 - 5.80 M/cumm MICHAEL Comment:Testing performed by : [address], [address] MCV 90.6 81.3 - 96.4 fL MICHAEL Comment:Testing performed by : [address] [address] MCH 29.7 27.1 - 33.3 pg MICHAEL Comment:Testing performed by : [address], [address] MCHC 32.8 32.3 - 35.7 g/dL MICHAEL Comment:Testing performed by : [address], [address] RDW CV 14.3 11.1 - 14.9 % MICHAEL Comment:Testing performed by : [address], [address] RDW SD 46.9 35.7 - 48.1 fL MICHAEL Comment:Testing performed by : [address], [address] NRBC abs 0.00 0.00 - 0.01 K/cumm MICHAEL Comment:Testing performed by : [address] [address] Blood 03/04/2025 7:24 AM CDT 03/04/2025 8:54 AM CDT Phillip Munroe MD LAB BLOOD ORDERABLES F inal Result Performing Organization Address [facility] de Phone Number [address] [employer] [place] [address] * Gamma GT (03/04/2025 7:24 AM CDT) Pathologist [facility] GGT 27 10 - 50 Units/L Blood 03/04/2025 7:24 AM CDT 03/04/2025 10:26 AM CDT Phillip Munroe MD LAB BLOOD ORDERABLES F inal Result Performing Organization Address [facility] de Phone Number [address] [address] * Comprehensive metabolic panel (03/04/2025 7:24 AM CDT) [facility] Sodium 143 135 - 145 mmol/L Comment:Testing performed by : [address] [address] Potassium, pl 4.4 3.3 - 4.9 mmol/L MICHAEL Comment:Testing performed by : [address] [address] Chloride 108 97 - 110 mmol/L MICHAEL Comment:Testing performed by : [address] [address] CO2 24 22 - 32 mmol/L MICHAEL Comment:Testing performed by : [address] [address] Anion gap 11 2 - 15 mmol/L MICHAEL Comment:Testing performed by : [address] [address] BUN 22 6 - 25 mg/dL MICHAEL Comment:Testing performed by : [address] [address] Creatinine 1.18 0.80 - 1.30 mg/dL MICHAEL Comment:Testing performed by : [address] [address] Glucose 126 70 - 199 mg/dL [facility] Comment: Interpretive Data Fasting glucose >/= 126 mg/dl is diagnostic for diabetes. Fasting is defined as no caloric intake for at least 8 hours. Fasting glucose between 100 mg/dl to 125 mg/dl is diagnostic of prediabetes. In a patient with classic symptoms of hyperglycemia or hyperglycemic crisis, a random glucose >/= 200 mg/dl is diagnostic for diabetes. In the absence of unequivocal hyperglycemia, results should be confirmed by repeat testing. The classification and Diagnosis of Diabetes Diabetes Care 2021; 46: S19-S40. Current interpretive data was last revised 2022. Testing performed by: [address] [address] Calcium 9.7 8.5 - 10.3 mg/dL [facility] Comment:Testing performed by : [address] [address] Bilirubin, total 0.4 0.1 - 1.2 mg/dL [facility] Comment:Testing performed by : [address] [address] Protein, pl 7.1 6.5 - 8.5 g/dL [facility] Comment:Testing performed by : [address] [address] Albumin 4.2 3.5 - 5.0 g/dL [facility] Comment:Testing performed by : [address] [address] Alk phos 80 40 - 130 Units/L MICHAEL Comment:Testing performed by : [address] [address] ALT 24 7 - 55 Units/L MICHAEL Comment:Testing performed by : [address], [address] AST 19 10 - 50 Units/L MICHAEL Comment:Testing performed by : [facility], [address] [place] [address], [place]., [address] Blood 03/04/2025 7:24 AM CDT 03/04/2025 8:48 AM CDT us Phillip Munroe MD LAB BLOOD ORDERABLES F inal Result MICHAEL [address] [facility] Department [place] [address] * IR Embolization Tumor Organ Ischemia or Infarction (02/17/2025 12:40 PM CDT) Anatomical Region Laterality Modality Body N/A Ultrasound 02/17/2025 5:43 PM CDT Impressions 02/19/2025 11:00 PM CDT Successful bilateral prostate artery embolization to end-point of stasis using particles. Coil embolization was performed of a left inferior rectal artery collateral and a right inferior vesicle artery collateral to protect against off-target embolization. PLAN: 2 hours flat then discharge home. Discharge medications will include: Ciprofloxacin 500 mg BID x 7 days Dulcolax 20 mg daily x 7 days Vesicare 5 mg daily x 7 days. Pyridium and ibuprofen were contraindicated due to a drug interaction with the patient's tacrolimus and due to limitations with renal impairment. These medications will be electronically prescribed by the mobile pharmacy. IR will follow the patient clinically for the improvement of lower urinary tract symptoms in 4 weeks. Dictated by: Marlene Lu MD The radiology attending physician has personally reviewed this study, and had reviewed and/or edited this written report and agrees with it. Electronically signed by: Phan Zavala MD Narrative 02/19/2025 11:00 PM CDT EXAMINATION: DIAGNOSTIC PELVIC ANGIOGRAPHY WITH PROSTATE ARTERY EMBOLIZATION HISTORY/INDICATION: 64-year-old man with BPH causing lower urinary tract symptoms presents for prostate artery embolization. His IPSS is 8, QoL 4-5.His prostate volume is 82 mL ATTENDING PRESENCE: Phan Zavala MD, the attending radiologist was present from the beginning to the end of the procedure. SEDATION: Procedural sedation was administered under the attending physician's direction and continuous monitoring by a trained nurse specialist who was independent from those actually performing the procedure. Total monitored sedation time was 225 minutes. TECHNIQUE: The risks, benefits and alternatives were discussed and informed consent was obtained. Prior to beginning the procedure, [place] Protocol was performed to confirm the patient's identity and the planned procedure. The fluoroscopy time has been recorded in the electronic medical record. Maximum sterile barriers including cap, mask, hand hygiene, sterile gloves, sterile gown, large sterile drape and 2% chlorhexidine for cutaneous antisepsis were used. Lor-procedural antibiotic prophylaxis was administered at the beginning of the case consisting of Cipro 400 mg IV. After sterile prep, the skin over the right common femoral artery was infiltrated with 1% Lidocaine. The artery was punctured under real time ultrasound guidance. An image of the patent vessel was recorded. A 6 Fr Romanian sheath was placed and connected to a heparinized saline drip. The side arm of the vascular sheath was used to perform a limited angiogram to confirm satisfactory position of arterial puncture site. Using fluoroscopic guidance, the following arteries were catheterized in sequences: Left internal iliac artery Left internal iliac artery anterior division Left accessary internal pudendal artery, perfusing the base of the penis (series #5] Most proximal left prostatic artery branch (3rd order) (series #6) Inferiorly-directed left prostatic artery branch (additional 3rd order) Inferior rectal collateral arising from the left prostatic artery capsular branch (series #7) Third left prostatic artery branch arising from the accessary IPA (additional 3rd order) Right internal iliac artery Right internal iliac artery anterior division Right accessary internal pudendal artery Right prostatic artery (with Aiklah CT) Inferior vesicle collateral arising from the right prostatic artery (additional 3rd order) Additional, more distal right prostatic artery (additional 3rd order) The equipment used for catheterization was 5 Romanian Omni Flush and RUC catheters and a 0.035 Bentson and Glidewire guidewires. The equipment used for selective catheterization was 2.0 Progreat catheter and a combination of Synchro, GT glide, and Fathom wires. The following selective diagnostic angiograms were performed: Left internal iliac artery Left internal iliac artery anterior division Left accessary internal pudendal artery Most proximal left prostatic artery branch (3rd order) Inferiorly-directed left prostatic artery capsular branch (additional 3rd order) Inferior rectal collateral arising from the left prostatic artery capsular branch Third left prostatic artery branch arising from the accessary IPA (additional 3rd order) Right internal iliac artery Right internal iliac artery anterior division Right accessary internal pudendal artery Right prostatic artery (with Akilah CT) Inferior vesicle collateral arising from the right prostatic artery (additional 3rd order) Additional, more distal right prostatic artery (additional 3rd order) Left prostate: The left prostate was found to be supplied by three separate branches arising from an accessary internal pudendal artery. The microcatheter tip was initially positioned in the most proximal left prostatic artery branch and the position confirmed with injection of radiographic contrast media. Intra-arterial nitroglycerin was injected through the microcatheter to promote vasodilation. Embolization was then performed using 300-500 um Embospheres and repeat angiography was performed. A left prostatic artery capsular branch was then selected and angiography performed, demonstrating communication with an inferior rectal artery collateral. This inferior rectal collateral was embolized with a 2 mm x 10 cm LP Alana coil to prevent off-target embolization of microspheres. The microcatheter tip was then positioned more proximally in the left prostatic capsular branch, additional intra-arterial nitroglycerin was injected through the microcatheter, and further embolization was performed using 300-500 um Embospheres. Next, the third prostatic artery branch arising from the accessory IPA was selected with difficulty using a combination of GT glide and Synchro wires. The position was confirmed with injection of radiographic contrast media, additional intra-arterial nitroglycerin was injected through the microcatheter, and further embolization was performed using 300-500 um Embospheres. For the left, a total of Nitroglycerin 1000 mcg intra arterial was injected through the microcatheter in multiple divided doses over the course of the prostatic artery selections to promote vasodilation. A total of 6.5 mL of 300-500 um Embospheres was used between the three prostatic artery branches, using appropriate precautions to the angiographic end point of near stasis. 100-300 um Embospheres were not used to reduce the risk of off-target embolization to the accessary IPA. The PErFecTED technique was not utilized for embolization of the left prostatic arteries. Coil embolization of the prostatic arteries was not performed on the way out. Post-embolization angiography was performed. Right prostate: The right prostate was found to be supplied by two separate branches arising from an accessary internal pudendal artery. The microcatheter tip was initially positioned in the more proximal right prostatic artery branch and the position confirmed with injection of radiographic contrast media with Akilah CT. Intra-arterial nitroglycerin was injected through the microcatheter to promote vasodilation. Embolization was then performed using 300-500 um Embospheres and repeat angiography was performed. The second, more distal right prostatic artery branch was then selected and angiography performed, demonstrating communication with an inferior vesicle collateral. This inferior vesicle collateral was embolized with a 2 mm x 4 cm LP Alana coil to prevent off-target embolization of microspheres. Kinking of the coil during deployment prevented repositioning, and the proximal end of the coil was deployed within the right prostatic artery. Additional intra-arterial nitroglycerin was injected through the microcatheter, and further embolization was performed using 300-500 um Embospheres. For the right, a total of Nitroglycerin 400 mcg intra arterial was injected through the microcatheter between the two right prostatic artery branches, and a total of 2.0 mL of 300-500 um Embospheres was used, using appropriate precautions to the angiographic end point of near stasis. 100-300 um Embospheres were not used to reduce the risk of off-target embolization to the accessary IPA. The PErFecTED technique was not utilized for embolization of the right prostatic arteries. Coil embolization of the prostatic arteries was not performed on the way out. Post-embolization angiography was performed. Total embolization volume (particles): 8.5 ml Angioseal device was deployed using ultrasound guidance to accomplish successful closure of the arteriotomy. ESTIMATED BLOOD LOSS: Minimal. CONDITION: Stable DISCHARGED TO: outpatient recovery. FINDINGS: Ultrasound image demonstrates a patent right common femoral artery. DIAGNOSTIC: Initial arteriography of the left internal iliac artery demonstrates three small left prostatic arteries, each originating from an accessory internal pudendal artery, demonstrating a Type 4 prostatic artery origin. The capsular prostatic artery branch had an inferior rectal collateral, which was coil embolized to prevent off-target embolization. Prostate embolization was performed with particles. [place] CT shows perfusion of the right prostate and post-embolization staining of the left prostate, with sparing of a portion of left posterolateral prostate. Initial arteriography of the right internal iliac artery demonstrated two separate right prostatic artery branches originating from an accessory internal pudendal artery, demonstrating a Type 4 prostatic artery origin. The more distal prostatic artery branch had an inferior vesicle collateral, which was coil embolized to prevent off-target embolization. Prostate embolization was performed with particles. THERAPEUTIC: Following embolization of the left prostatic artery, angiogram shows stasis of the left prostatic artery. Following embolization of the right prostatic artery, angiogram shows stasis of the right prostatic artery. Procedure Note Phan Mccann MD - 02/19/2025 EXAMINATION: DIAGNOSTIC PELVIC ANGIOGRAPHY WITH PROSTATE ARTERY EMBOLIZATION HISTORY/INDICATION: 64-year-old man with BPH causing lower urinary tract symptoms presents for prostate artery embolization. His IPSS is 8, QoL 4-5.His prostate volume is 82 mL ATTENDING PRESENCE: Phan Zavala MD, the attending radiologist was present from the beginning to the end of the procedure. SEDATION: Procedural sedation was administered under the attending physician's direction and continuous monitoring by a trained nurse specialist who was independent from those actually performing the procedure. Total monitored sedation time was 225 minutes. TECHNIQUE: The risks, benefits and alternatives were discussed and informed consent was obtained. Prior to beginning the procedure, [place] Protocol was performed to confirm the patient's identity and the planned procedure. The fluoroscopy time has been recorded in the electronic medical record. Maximum sterile barriers including cap, mask, hand hygiene, sterile gloves, sterile gown, large sterile drape and 2% chlorhexidine for cutaneous antisepsis were used. Lor-procedural antibiotic prophylaxis was administered at the beginning of the case consisting of Cipro 400 mg IV. After sterile prep, the skin over the right common femoral artery was infiltrated with 1% Lidocaine. The artery was punctured under real time ultrasound guidance. An image of the patent vessel was recorded. A 6 Fr Romanian sheath was placed and connected to a heparinized saline drip. The side arm of the vascular sheath was used to perform a limited angiogram to confirm satisfactory position of arterial puncture site. Using fluoroscopic guidance, the following arteries were catheterized in sequences: Left internal iliac artery Left internal iliac artery anterior division Left accessary internal pudendal artery, perfusing the base of the penis (series #5] Most proximal left prostatic artery branch (3rd order) (series #6) Inferiorly-directed left prostatic artery branch (additional 3rd order) Inferior rectal collateral arising from the left prostatic artery capsular branch (series #7) Third left prostatic artery branch arising from the accessary IPA (additional 3rd order) Right internal iliac artery Right internal iliac artery anterior division Right accessary internal pudendal artery Right prostatic artery (with [place] CT) Inferior vesicle collateral arising from the right prostatic artery (additional 3rd order) Additional, more distal right prostatic artery (additional 3rd order) The equipment used for catheterization was 5 Romanian Omni Flush and RUC catheters and a 0.035 Bentson and Glidewire guidewires. The equipment used for selective catheterization was 2.0 Progreat catheter and a combination of Synchro, GT glide, and Fathom wires. The following selective diagnostic angiograms were performed: Left internal iliac artery Left internal iliac artery anterior division Left accessary internal pudendal artery Most proximal left prostatic artery branch (3rd order) Inferiorly-directed left prostatic artery capsular branch (additional 3rd order) Inferior rectal collateral arising from the left prostatic artery capsular branch Third left prostatic artery branch arising from the accessary IPA (additional 3rd order) Right internal iliac artery Right internal iliac artery anterior division Right accessary internal pudendal artery Right prostatic artery (with [place] CT) Inferior vesicle collateral arising from the right prostatic artery (additional 3rd order) Additional, more distal right prostatic artery (additional 3rd order) Left prostate: The left prostate was found to be supplied by three separate branches arising from an accessary internal pudendal artery. The microcatheter tip was initially positioned in the most proximal left prostatic artery branch and the position confirmed with injection of radiographic contrast media. Intra-arterial nitroglycerin was injected through the microcatheter to promote vasodilation. Embolization was then performed using 300-500 um Embospheres and repeat angiography was performed. A left prostatic artery capsular branch was then selected and angiography performed, demonstrating communication with an inferior rectal artery collateral. This inferior rectal collateral was embolized with a 2 mm x 10 cm LP Alana coil to prevent off-target embolization of microspheres. The microcatheter tip was then positioned more proximally in the left prostatic capsular branch, additional intra-arterial nitroglycerin was injected through the microcatheter, and further embolization was performed using 300-500 um Embospheres. Next, the third prostatic artery branch arising from the accessory IPA was selected with difficulty using a combination of GT glide and Synchro wires. The position was confirmed with injection of radiographic contrast media, additional intra-arterial nitroglycerin was injected through the microcatheter, and further embolization was performed using 300-500 um Embospheres. For the left, a total of Nitroglycerin 1000 mcg intra arterial was injected through the microcatheter in multiple divided doses over the course of the prostatic artery selections to promote vasodilation. A total of 6.5 mL of 300-500 um Embospheres was used between the three prostatic artery branches, using appropriate precautions to the angiographic end point of near stasis. 100-300 um Embospheres were not used to reduce the risk of off-target embolization to the accessary IPA. The PErFecTED technique was not utilized for embolization of the left prostatic arteries. Coil embolization of the prostatic arteries was not performed on the way out. Post-embolization angiography was performed. Right prostate: The right prostate was found to be supplied by two separate branches arising from an accessary internal pudendal artery. The microcatheter tip was initially positioned in the more proximal right prostatic artery branch and the position confirmed with injection of radiographic contrast media with [place] CT. Intra-arterial nitroglycerin was injected through the microcatheter to promote vasodilation. Embolization was then performed using 300-500 um Embospheres and repeat angiography was performed. The second, more distal right prostatic artery branch was then selected and angiography performed, demonstrating communication with an inferior vesicle collateral. This inferior vesicle collateral was embolized with a 2 mm x 4 cm LP Alana coil to prevent off-target embolization of microspheres. Kinking of the coil during deployment prevented repositioning, and the proximal end of the coil was deployed within the right prostatic artery. Additional intra-arterial nitroglycerin was injected through the microcatheter, and further embolization was performed using 300-500 um Embospheres. For the right, a total of Nitroglycerin 400 mcg intra arterial was injected through the microcatheter between the two right prostatic artery branches, and a total of 2.0 mL of 300-500 um Embospheres was used, using appropriate precautions to the angiographic end point of near stasis. 100-300 um Embospheres were not used to reduce the risk of off-target embolization to the accessary IPA. The PErFecTED technique was not utilized for embolization of the right prostatic arteries. Coil embolization of the prostatic arteries was not performed on the way out. Post-embolization angiography was performed. Total embolization volume (particles): 8.5 ml Angioseal device was deployed using ultrasound guidance to accomplish successful closure of the arteriotomy. ESTIMATED BLOOD LOSS: Minimal. CONDITION: Stable DISCHARGED TO: outpatient recovery. FINDINGS: Ultrasound image demonstrates a patent right common femoral artery. DIAGNOSTIC: Initial arteriography of the left internal iliac artery demonstrates three small left prostatic arteries, each originating from an accessory internal pudendal artery, demonstrating a Type 4 prostatic artery origin. The capsular prostatic artery branch had an inferior rectal collateral, which was coil embolized to prevent off-target embolization. Prostate embolization was performed with particles. [place] CT shows perfusion of the right prostate and post-embolization staining of the left prostate, with sparing of a portion of left posterolateral prostate. Initial arteriography of the right internal iliac artery demonstrated two separate right prostatic artery branches originating from an accessory internal pudendal artery, demonstrating a Type 4 prostatic artery origin. The more distal prostatic artery branch had an inferior vesicle collateral, which was coil embolized to prevent off-target embolization. Prostate embolization was performed with particles. THERAPEUTIC: Following embolization of the left prostatic artery, angiogram shows stasis of the left prostatic artery. Following embolization of the right prostatic artery, angiogram shows stasis of the right prostatic artery. IMPRESSION: Successful bilateral prostate artery embolization to end-point of stasis using particles. Coil embolization was performed of a left inferior rectal artery collateral and a right inferior vesicle artery collateral to protect against off-target embolization. PLAN: 2 hours flat then discharge home. Discharge medications will include: Ciprofloxacin 500 mg BID x 7 days Dulcolax 20 mg daily x 7 days Vesicare 5 mg daily x 7 days. Pyridium and ibuprofen were contraindicated due to a drug interaction with the patient's tacrolimus and due to limitations with renal impairment. These medications will be electronically prescribed by the mobile pharmacy. IR will follow the patient clinically for the improvement of lower urinary tract symptoms in 4 weeks. Dictated by: Marlene Lu MD The radiology attending physician has personally reviewed this study, and had reviewed and/or edited this written report and agrees with it. Electronically signed by: Phan Zavala MD Phan Zavala MD IMG IR PROCEDURES Claudine l Result * (ABNORMAL) eGFR (02/17/2025 6:15 AM CDT) eGFR 55(L) >=60 mL/min/1. 73 m2 Comment: Interpretive Data Reference Interval Normal >/= 90 mL/min/1.73m2 Mildly decreased* 60 - 89 mL/min/1.73m2 Mildly to moderately decreased 45 - 59 mL/min/1.73m2 Moderately to severely decreased 30 - 44 mL/min/1.73m2 Severely decreased 15 - 29 mL/min/1.73m2 Kidney Failure < 15 mL/min/1.73m2 *Relative to young adult level Estimated glomerular filtration rate is determined by the 2020 CKD-EPI equation recommended by the National Kidney Foundation (A Unifying Approach to GFR Estimation: Recommendations of the NKF-ASK Task Force on Reassessing the Inclusion of Race in Diagnosing Kidney Disease, JASN 202). The CKD-EPI equation should not be used for patients with unstable renal function and has not been validated in children and those over 70. Current interpretive data was last reviewed 2021. Blood 02/17/2025 6:15 AM CDT 02/17/2025 6:49 AM CDT Phan Zavala MD LAB BLOOD ORDERABLES F inal Result [facility] Department [place] [address] * Differential, auto (02/17/2025 6:15 AM CDT) Pathologist [facility] Neutrophil abs 2.16 1.50 - 6.50 K/cumm Imm gran abs 0.01 0.00 - 0.10 K/cumm [facility] Lymphocyte abs 1.02 0.80 - 3.30 K/cumm [facility] Monocyte abs 0.42 0.20 - 0.80 K/cumm [facility] Eosinophil abs 0.08 0.00 - 0.50 K/cumm [facility] Basophil abs 0.01 0.00 - 0.10 K/cumm [facility] Neutrophil pct 58.2 % [facility] Comment: Interpretive Data Percent cell count reference ranges are not reported, since discordance with absolute values may lead to misinterpretation of CBC data. Current Interpretive Data was last revised on 2017. Imm gran pct 0.3 % [facility] Comment: Interpretive Data Percent cell count reference ranges are not reported, since discordance with absolute values may lead to misinterpretation of CBC data. Current Interpretive Data was last revised on 2017. Lymphocyte pct 27.6 % [facility] Comment: Interpretive Data Percent cell count reference ranges are not reported, since discordance with absolute values may lead to misinterpretation of CBC data. Current Interpretive Data was last revised on 2017. Monocyte pct 11.4 % [facility] Comment: Interpretive Data Percent cell count reference ranges are not reported, since discordance with absolute values may lead to misinterpretation of CBC data. Current Interpretive Data was last revised on 2017. Eosinophil pct 2.2 % [facility] Comment: Interpretive Data Percent cell count reference ranges are not reported, since discordance with absolute values may lead to misinterpretation of CBC data. Current Interpretive Data was last revised on 2017. Basophil pct 0.3 % [facility] Comment: Interpretive Data Percent cell count reference ranges are not reported, since discordance with absolute values may lead to misinterpretation of CBC data. Current Interpretive Data was last revised on 2017. Blood 02/17/2025 6:15 AM CDT 02/17/2025 6:49 AM CDT us Phan Zavala MD LAB BLOOD ORDERABLES F inal Result [facility] Department [place] [address] * (ABNORMAL) CBC with auto differential (02/17/2025 6:15 AM CDT) WBC 3.70(L) 3.80 - 9.90 K/cumm Hgb 12.9(L) 13.0 - 17.5 g/dL [facility] Hct 34.6(L) 38.9 - 50.3 % [facility] Plt 135(L) 150 - 400 K/cumm [facility] MPV 11.9 9.1 - 12.3 fL [facility] RBC 4.05(L) 4.30 - 5.80 M/cumm [facility] MCV 85.4 81.3 - 96.4 fL [facility] MCH 31.9 27.1 - 33.3 pg [facility] MCHC 37.3(H) 32.3 - 35.7 g/dL [facility] RDW CV 14.6 11.1 - 14.9 % [facility] RDW SD 45.3 35.7 - 48.1 fL [facility] NRBC abs 0.00 0.00 - 0.01 K/cumm [facility] Blood 02/17/2025 6:15 AM CDT 02/17/2025 6:49 AM CDT Phan Zavala MD LAB BLOOD ORDERABLES F inal Result Performing Organization Address [facility] de Phone Number [email or web address] [address] * Protime-INR (02/17/2025 6:15 AM CDT) PT 10.4 10.2 - 13.5 sec Comment:No clot detected in sample - [id number] - 02/17/25, 8:38 AM INR 0.92 0.90 - 1.20 [facility] Comment: Interpretive data Oral anticoagulant therapeutic ranges: Venous thromboembolism prophylaxis or treatment: 2.0-3.0 CARDIOLOGY Standard range: 2.0-3.0 High-intensity range: 2.5-3.5 Refer to indication-specific guidelines for appropriate target ranges for prosthetic heart valve replacement. Current interpretive data was last revised on 2019. Blood 02/17/2025 6:15 AM CDT 02/17/2025 6:58 AM CDT Phan Zavala MD LAB BLOOD ORDERABLES F inal Result Performing Organization Address [facility] de Phone Number [facility] [employer] [place] [address] * (ABNORMAL) Comprehensive metabolic panel (02/17/2025 6:15 AM CDT) Sodium 141 135 - 145 mmol/L Potassium, pl 5.3(H) 3.3 - 4.9 mmol/L [facility] Comment:Hemolyzed; Potassium value may be falsely elevated by as much as 1.1-1.6 mmol/L. Suggest redraw and reanalysis. Chloride 110 97 - 110 mmol/L [facility] CO2 21(L) 22 - 32 mmol/L [facility] Anion gap 10 2 - 15 mmol/L [facility] BUN 23 6 - 25 mg/dL [facility] Creatinine 1.43(H) 0.80 - 1.30 mg/dL [facility] Glucose 117 70 - 199 mg/dL [facility] Comment: Interpretive Data Fasting glucose >/= 126 mg/dl is diagnostic for diabetes. Fasting is defined as no caloric intake for at least 8 hours. Fasting glucose between 100 mg/dl to 125 mg/dl is diagnostic of prediabetes. In a patient with classic symptoms of hyperglycemia or hyperglycemic crisis, a random glucose >/= 200 mg/dl is diagnostic for diabetes. In the absence of unequivocal hyperglycemia, results should be confirmed by repeat testing. The classification and Diagnosis of Diabetes Diabetes Care 2021; 46: S19-S40. Current interpretive data was last revised 2022. Calcium 9.0 8.5 - 10.3 mg/dL [facility] Bilirubin, total 0.3 0.1 - 1.2 mg/dL [facility] Protein, pl 7.2 6.5 - 8.5 g/dL [facility] Albumin 3.9 3.5 - 5.0 g/dL [facility] Alk phos 100 40 - 130 Units/L [facility] Comment:Hemolyzed; result ma y be falsely decreased ALT 31 7 - 55 Units/L [facility] AST 43 10 - 50 Units/L [facility] Comment:Hemolyzed; result ma y be falsely elevated Blood 02/17/2025 6:15 AM CDT 02/17/2025 6:49 AM CDT Phan Zavala MD LAB BLOOD ORDERABLES F inal Result [facility] Department [place] [address] * eGFR (01/31/2025 7:32 AM CDT) eGFR 63 >=60 mL/min/1. 73 m2 Comment: Interpretive Data Reference Interval Normal >/= 90 mL/min/1.73m2 Mildly decreased* 60 - 89 mL/min/1.73m2 Mildly to moderately decreased 45 - 59 mL/min/1.73m2 Moderately to severely decreased 30 - 44 mL/min/1.73m2 Severely decreased 15 - 29 mL/min/1.73m2 Kidney Failure < 15 mL/min/1.73m2 *Relative to young adult level Estimated glomerular filtration rate is determined by the 2020 CKD-EPI equation recommended by the National Kidney Foundation (A Unifying Approach to GFR Estimation: Recommendations of the NKF-ASK Task Force on Reassessing the Inclusion of Race in Diagnosing Kidney Disease, JASN 2020). The CKD-EPI equation should not be used for patients with unstable renal function and has not been validated in children and those over 70. Current interpretive data was last reviewed 2021. Testing performed by: [facility], [address] [place] [address]., [address] Blood 01/31/2025 7:32 AM CDT 01/31/2025 9:30 AM CDT us Shay Wright MD LAB BLOOD ORDERABLES Fin al Result [facility] [address] [facility] Department [place] [address] * Cystatin C (01/31/2025 7:32 AM CDT) Cystatin C 1.16 0.60 - 1.20 mg/L Comment: Interpretive Data Cystatin C concentrations vary widely in the first month of life, particularly in pre-term infants. Concentrations gradually diminish to adult levels by 1 year of life. Concentrations tend to rise with diminishing renal function in individuals greater than 60 years of age. Current Interpretive Data was last revised on 2020. Testing performed by: [facility], [place]., [address] Blood 01/31/2025 7:32 AM CDT 01/31/2025 1:08 PM CDT Shay Wright MD LAB BLOOD ORDERABLES Fin al Result Performing Organization Address [facility] de Phone Number [phone] [place] [address] * (ABNORMAL) Albumin Creatinine Ratio, Urine (01/31/2025 7:32 AM CDT) Pathologist [facility] Albumin Ur 605.7 mg/L Comment: Interpretive Data No reference range established. Current interpretive data was last revised 2018. Testing performed by: [address] [address] Creatinine Ur 260.5 mg/dL [facility] Comment: Interpretive Data No reference range established. Current interpretive data was last revised 2018. Testing performed by: [address] [address] Albumin Creatinine Ratio, Ur 233(H) 1 - 29 mg/g [facility] Comment:Testing performed by : [address] [address] Urine 01/31/2025 7:32 AM CDT 01/31/2025 9:30 AM CDT Shay Wright MD LAB URINE ORDERABLES Fin al Result Performing Organization Address [facility] Co de Phone Number [place] [phone] [place] [address] * Creatine kinase (CK), total (01/31/2025 7:32 AM CDT) Pathologist [facility] CK 119 40 - 300 Units/L Comment:Testing performed by : [address] [address] Blood 01/31/2025 7:32 AM CDT 01/31/2025 9:30 AM CDT us Shay Wright MD LAB BLOOD ORDERABLES Fin al Result [facility] [address] [facility] Department [place] [address] * Renal function panel (01/31/2025 7:32 AM CDT) Sodium 144 135 - 145 mmol/L Comment:Testing performed by : [address] [address] Potassium, pl 4.2 3.3 - 4.9 mmol/L [facility] Comment:Testing performed by : [address] [address] Chloride 110 97 - 110 mmol/L [facility] Comment:Testing performed by : [address] [address] CO2 22 22 - 32 mmol/L [facility] Comment:Testing performed by : [address] [address] Anion gap 12 2 - 15 mmol/L [facility] Comment:Testing performed by : [address] [address] BUN 19 6 - 25 mg/dL [facility] Comment:Testing performed by : [address] [address] Creatinine 1.27 0.80 - 1.30 mg/dL [facility] Comment:Testing performed by : [address] [address] Glucose 124 70 - 199 mg/dL [facility] Comment: Interpretive Data Fasting glucose >/= 126 mg/dl is diagnostic for diabetes. Fasting is defined as no caloric intake for at least 8 hours. Fasting glucose between 100 mg/dl to 125 mg/dl is diagnostic of prediabetes. In a patient with classic symptoms of hyperglycemia or hyperglycemic crisis, a random glucose >/= 200 mg/dl is diagnostic for diabetes. In the absence of unequivocal hyperglycemia, results should be confirmed by repeat testing. The classification and Diagnosis of Diabetes Diabetes Care 2021; 46: S19-S40. Current interpretive data was last revised 2022. Testing performed by: [address] [address] Calcium 9.8 8.5 - 10.3 mg/dL [facility] EVANGELISTA Comment:Testing performed by : [address] [address] Phosphorus, pl 3.8 2.3 - 4.5 mg/dL [facility] EVANGELISTA Comment:Testing performed by : [address] [address] Albumin 4.3 3.5 - 5.0 g/dL [facility] Comment:Testing performed by : [address] [address] Blood 01/31/2025 7:32 AM CDT 01/31/2025 9:30 AM CDT us Shay Wright MD LAB BLOOD ORDERABLES Fin al Result Performing Organization Address City/State/[facility] Co de Phone Number [facility] [address] [facility] Department [place] [address] * eGFR (01/31/2025 7:25 AM CDT) eGFR 62 >=60 mL/min/1. 73 m2 Comment: Interpretive Data Reference Interval Normal >/= 90 mL/min/1.73m2 Mildly decreased* 60 - 89 mL/min/1.73m2 Mildly to moderately decreased 45 - 59 mL/min/1.73m2 Moderately to severely decreased 30 - 44 mL/min/1.73m2 Severely decreased 15 - 29 mL/min/1.73m2 Kidney Failure < 15 mL/min/1.73m2 *Relative to young adult level Estimated glomerular filtration rate is determined by the 2020 CKD-EPI equation recommended by the National Kidney Foundation (A Unifying Approach to GFR Estimation: Recommendations of the NKF-ASK Task Force on Reassessing the Inclusion of Race in Diagnosing Kidney Disease, JASN 2020). The CKD-EPI equation should not be used for patients with unstable renal function and has not been validated in children and those over 70. Current interpretive data was last reviewed 2021. Testing performed by: [address] [address] Blood 01/31/2025 7:25 AM CDT 01/31/2025 9:30 AM CDT Phillip Munroe MD LAB BLOOD ORDERABLES F inal Result [facility] [address] [facility] Department [place] [address] * Differential, auto (01/31/2025 7:25 AM CDT) Neutrophil abs 1.89 1.50 - 6.50 K/cumm Comment:Testing performed by : [address] [address] Imm gran abs 0.00 0.00 - 0.10 K/cumm MICHAEL Comment:Testing performed by : [address] [address] Lymphocyte abs 0.91 0.80 - 3.30 K/cumm MICHAEL Comment:Testing performed by : [address] [address] Monocyte abs 0.41 0.20 - 0.80 K/cumm MICHAEL Comment:Testing performed by : [address] [address] Eosinophil abs 0.10 0.00 - 0.50 K/cumm MICHAEL Comment:Testing performed by : [address] [address] Basophil abs 0.01 0.00 - 0.10 K/cumm MICHAEL Comment:Testing performed by : [address] [address] Neutrophil pct 57.0 % MICHAEL Comment: Interpretive Data Percent cell count reference ranges are not reported, since discordance with absolute values may lead to misinterpretation of CBC data. Current Interpretive Data was last revised on 2017. Testing performed by: [address] [address] Imm gran pct 0.0 % MICHAEL Comment: Interpretive Data Percent cell count reference ranges are not reported, since discordance with absolute values may lead to misinterpretation of CBC data. Current Interpretive Data was last revised on 2017. Testing performed by: [address] [address] Lymphocyte pct 27.4 % [facility] Comment: Interpretive Data Percent cell count reference ranges are not reported, since discordance with absolute values may lead to misinterpretation of CBC data. Current Interpretive Data was last revised on 2017. Testing performed by: [address] [address] Monocyte pct 12.3 % [facility] Comment: Interpretive Data Percent cell count reference ranges are not reported, since discordance with absolute values may lead to misinterpretation of CBC data. Current Interpretive Data was last revised on 2017. Testing performed by: [address] [address] Eosinophil pct 3.0 % [facility] Comment: Interpretive Data Percent cell count reference ranges are not reported, since discordance with absolute values may lead to misinterpretation of CBC data. Current Interpretive Data was last revised on 2017. Testing performed by: [address] [address] Basophil pct 0.3 % [facility] Comment: Interpretive Data Percent cell count reference ranges are not reported, since discordance with absolute values may lead to misinterpretation of CBC data. Current Interpretive Data was last revised on 2017. Testing performed by: [address] [address] Blood 01/31/2025 7:25 AM CDT 01/31/2025 9:38 AM CDT us Phillip Munroe MD LAB BLOOD ORDERABLES F inal Result MICHAEL EVANGELISTA [address] [facility] Department [place] [address] * Tacrolimus level trough (01/31/2025 7:25 AM CDT) [facility] Tacrolimus trough 4.8 ng/mL Comment: Interpretive Data Testing performed by liquid chromatography-tandem mass spectrometry. Therapeutic concentrations vary depending on type of transplanted organ and time elapsed since transplant. Typical trough concentrations range from 5-15 ng/mL. This test was developed and its performance characteristics determined by the [facility] consistent with CLIA requirements. This test has not been cleared or approved by the [place] Food and Drug administration. Current interpretive data last reviewed 2019. Testing performed by: [facility], [address] [place]., [address] Blood 01/31/2025 7:25 AM CDT 01/31/2025 11:20 AM CDT us Phillip Munroe MD LAB BLOOD ORDERABLES F inal Result MICHAEL EVANGELISTA [facility] Department [place] [address] * (ABNORMAL) CBC with auto differential (01/31/2025 7:25 AM CDT) Pathologist [facility] WBC 3.32(L) 3.80 - 9.90 K/cumm Comment:Testing performed by : [address] [address] Hgb 11.9(L) 13.0 - 17.5 g/dL MICHAEL VEANGELISTA Comment:Testing performed by : [address] [address] Hct 36.7(L) 38.9 - 50.3 % MICHAEL EVANGELISTA Comment:Testing performed by : [address] [address] Plt 113(L) 150 - 400 K/cumm MICHAEL EVANGELISTA Comment:Testing performed by : [address] [address] MPV 12.9(H) 9.1 - 12.3 fL MICHAEL EVANGELISTA Comment:Testing performed by : [address] [address] RBC 4.17(L) 4.30 - 5.80 M/cumm MICHAEL EVANGELISTA Comment:Testing performed by : [address], [address] MCV 88.0 81.3 - 96.4 fL MICHAEL EVANGELISTA Comment:Testing performed by : [address], [address] MCH 28.5 27.1 - 33.3 pg MICHAEL EVANGELISTA Comment:Testing performed by : [address], [address] MCHC 32.4 32.3 - 35.7 g/dL MICHAEL EVANGELISTA Comment:Testing performed by : [address], [address] RDW CV 15.1(H) 11.1 - 14.9 % MICHAEL EVANGELISTA Comment:Testing performed by : [address], [address] RDW SD 48.4(H) 35.7 - 48.1 fL MICHAEL EVANGELISTA Comment:Testing performed by : [address], [address] NRBC abs 0.00 0.00 - 0.01 K/cumm MICHAEL Comment:Testing performed by : [address], [address] Blood 01/31/2025 7:25 AM CDT 01/31/2025 9:38 AM CDT Phillip Munroe MD LAB BLOOD ORDERABLES F inal Result Performing Organization Address [facility] Co de Phone Number MICHAEL [address] [employer] [place] [address] * Gamma GT (01/31/2025 7:25 AM CDT) GGT 25 10 - 50 Units/L Blood 01/31/2025 7:25 AM CDT 01/31/2025 10:25 AM CDT Phillip Munroe MD LAB BLOOD ORDERABLES F inal Result Performing Organization Address [facility] de Phone Number MICHAEL [facility] Department [place] [address] * (ABNORMAL) Comprehensive metabolic panel (01/31/2025 7:25 AM CDT) Sodium 144 135 - 145 mmol/L Comment:Testing performed by : [address], [place]., [address] Potassium, pl 4.2 3.3 - 4.9 mmol/L MICHAEL Comment:Testing performed by : [address], [place]., [address] Chloride 111(H) 97 - 110 mmol/L MICHAEL Comment:Testing performed by : [address], [place]., [address] CO2 21(L) 22 - 32 mmol/L MICHAEL Comment:Testing performed by : [address], [place]., [address] Anion gap 12 2 - 15 mmol/L MICHAEL Comment:Testing performed by : [address] [address] BUN 18 6 - 25 mg/dL MICHAEL Comment:Testing performed by : [address], [place]., [address] Creatinine 1.30 0.80 - 1.30 mg/dL MICHAEL Comment:Testing performed by : [address] [address] Glucose 122 70 - 199 mg/dL MICHAEL Comment: Interpretive Data Fasting glucose >/= 126 mg/dl is diagnostic for diabetes. Fasting is defined as no caloric intake for at least 8 hours. Fasting glucose between 100 mg/dl to 125 mg/dl is diagnostic of prediabetes. In a patient with classic symptoms of hyperglycemia or hyperglycemic crisis, a random glucose >/= 200 mg/dl is diagnostic for diabetes. In the absence of unequivocal hyperglycemia, results should be confirmed by repeat testing. The classification and Diagnosis of Diabetes Diabetes Care 202; 46: S19-S40. Current interpretive data was last revised 2022. Testing performed by: [address], [place]., [address] Calcium 9.7 8.5 - 10.3 mg/dL MICHAEL Comment:Testing performed by : [address] [address] Bilirubin, total 0.4 0.1 - 1.2 mg/dL MICHAEL Comment:Testing performed by : [address] [address] Protein, pl 7.1 6.5 - 8.5 g/dL MICHAEL Comment:Testing performed by : [address] [address] Albumin 4.4 3.5 - 5.0 g/dL MICHAEL Comment:Testing performed by : [address] [address] Alk phos 105 40 - 130 Units/L MICAHEL Comment:Testing performed by : [address] [address] ALT 27 7 - 55 Units/L MICHAEL Comment:Testing performed by : [address] [address] AST 23 10 - 50 Units/L MICHAEL Comment:Testing performed by : [address] [address] Blood 01/31/2025 7:25 AM CDT 01/31/2025 9:30 AM CDT Phillip Munroe MD LAB BLOOD ORDERABLES F inal Result [facility] [address] [facility] Department [place] [address] * eGFR (01/06/2025 12:31 PM CDT) eGFR 62 >=60 mL/min/1. 73 m2 Comment: Interpretive Data Reference Interval Normal >/= 90 mL/min/1.73m2 Mildly decreased* 60 - 89 mL/min/1.73m2 Mildly to moderately decreased 45 - 59 mL/min/1.73m2 Moderately to severely decreased 30 - 44 mL/min/1.73m2 Severely decreased 15 - 29 mL/min/1.73m2 Kidney Failure < 15 mL/min/1.73m2 *Relative to young adult level Estimated glomerular filtration rate is determined by the 2020 CKD-EPI equation recommended by the National Kidney Foundation (A Unifying Approach to GFR Estimation: Recommendations of the NKF-ASK Task Force on Reassessing the Inclusion of Race in Diagnosing Kidney Disease, JASN 2020). The CKD-EPI equation should not be used for patients with unstable renal function and has not been validated in children and those over 70. Current interpretive data was last reviewed 2021. Testing performed by: [address] [address] Blood 01/06/2025 12:3 1 PM CDT 01/06/2025 1:55 PM CDT us Shay Wright MD LAB BLOOD ORDERABLES Fin al Result [facility] Department [place] [address] * Differential, auto (01/06/2025 12:31 PM CDT) Neutrophil abs 2.31 1.50 - 6.50 K/cumm Comment:Testing performed by : [address] [address] Imm gran abs 0.01 0.00 - 0.10 K/cumm MICHAEL Comment:Testing performed by : [address] [address] Lymphocyte abs 0.96 0.80 - 3.30 K/cumm MICHAEL Comment:Testing performed by : [address] [address] Monocyte abs 0.44 0.20 - 0.80 K/cumm MICHAEL Comment:Testing performed by : [address] [address] Eosinophil abs 0.05 0.00 - 0.50 K/cumm MICHAEL Comment:Testing performed by : [address] [address] Basophil abs 0.01 0.00 - 0.10 K/cumm MICHAEL Comment:Testing performed by : [address] [address] Neutrophil pct 61.1 % [facility] Comment: Interpretive Data Percent cell count reference ranges are not reported, since discordance with absolute values may lead to misinterpretation of CBC data. Current Interpretive Data was last revised on 2017. Testing performed by: [address] [address] Imm gran pct 0.3 % [facility] Comment: Interpretive Data Percent cell count reference ranges are not reported, since discordance with absolute values may lead to misinterpretation of CBC data. Current Interpretive Data was last revised on 2017. Testing performed by: [address] [address] Lymphocyte pct 25.4 % [facility] Comment: Interpretive Data Percent cell count reference ranges are not reported, since discordance with absolute values may lead to misinterpretation of CBC data. Current Interpretive Data was last revised on 2017. Testing performed by: [address] [address] Monocyte pct 11.6 % [facility] Comment: Interpretive Data Percent cell count reference ranges are not reported, since discordance with absolute values may lead to misinterpretation of CBC data. Current Interpretive Data was last revised on 2017. Testing performed by: [address] [address] Eosinophil pct 1.3 % [facility] Comment: Interpretive Data Percent cell count reference ranges are not reported, since discordance with absolute values may lead to misinterpretation of CBC data. Current Interpretive Data was last revised on 2017. Testing performed by: [address] [address] Basophil pct 0.3 % [facility] Comment: Interpretive Data Percent cell count reference ranges are not reported, since discordance with absolute values may lead to misinterpretation of CBC data. Current Interpretive Data was last revised on 2017. Testing performed by: [address] [address] Blood 01/06/2025 12:3 1 PM CDT 01/06/2025 1:56 PM CDT Shay Wright MD LAB BLOOD ORDERABLES Fin al Result Performing Organization Address [facility] de Phone Number [facility] [address] [facility] [employer] [address] * Cystatin C (01/06/2025 12:31 PM CDT) Cystatin C 1.16 0.60 - 1.20 mg/L Comment: Interpretive Data Cystatin C concentrations vary widely in the first month of life, particularly in pre-term infants. Concentrations gradually diminish to adult levels by 1 year of life. Concentrations tend to rise with diminishing renal function in individuals greater than 60 years of age. Current Interpretive Data was last revised on 2020. Testing performed by: [facility], [place]., [address] Blood 01/06/2025 12:3 1 PM CDT 01/06/2025 5:53 PM CDT Shay Wright MD LAB BLOOD ORDERABLES Fin al Result Performing Organization Address [facility] de Phone Number PILLO[address] [employer] [place] [address] * (ABNORMAL) Urinalysis reflex to microscopic (01/06/2025 12:31 PM CDT) Color, ur Yellow Yellow Comment:Testing performed by : [address] [address] Clarity, ur Clear Clear MICHAEL Comment:Testing performed by : [address] [address] Specific gravity, ur 1.014 1.003 - 1.030 MICHAEL Comment:Testing performed by : [address] [address] pH, urine 5.5 MICHAEL Comment: Interpretive Data U rine pH is affected by diet, medications, systemic acid-base disturbances, and renal tubular function. pH may affect urinary stone formation. For example, urine pH below 6.0 may help reduce the tendency for calcium phosphate stones and pH greater than 6.0 may reduce the tendency for uric acid stone formation. Source: [facility] Current Interpretive Data was last revised on 2017 Testing performed by: [facility], [address] [place] [address]., [address] Protein, ur ql 1+(A) Negative MICHAEL EVANGELISTA Comment:Testing performed by : [address] [address] Glucose, ur ql Negative Negative MICHAEL Comment:Testing performed by : [address], [place]., [address] Ketones, ur Negative Negative MICHAEL Comment:Testing performed by : [address] [address] Bilirubin, ur Negative Negative MICHAEL Comment:Testing performed by : [address], [place]., [address] Blood, ur 2+(A) Negative MCIHAEL EVANGELISTA Comment:Testing performed by : [address], [place]., [address] Urobilinogen, ur <2.0 <2.0 mg/dL MICHAEL Comment:Testing performed by : [address] [address] Nitrite, ur Negative Negative MICHAEL Comment:Testing performed by : [address] [address] Leukocyte esterase, ur Negative Negative MICHAEL Comment:Testing performed by : [address] [address] UA reflex comment Reflex to microscopic UA will be performed. MICHAEL Comment:Testing performed by : [address] [address] Urine 01/06/2025 12:3 1 PM CDT 01/06/2025 1:56 PM CDT us Shay Wright MD LAB URINE ORDERABLES Fin al Result MICHAEL EVANGELISTA [address] [facility] Department [place] [address] * (ABNORMAL) CBC with auto differential (01/06/2025 12:31 PM CDT) [facility] WBC 3.78(L) 3.80 - 9.90 K/cumm Comment:Testing performed by : [address] [address] Hgb 11.0(L) 13.0 - 17.5 g/dL MICHAEL Comment:Testing performed by : [address], [address] Hct 33.2(L) 38.9 - 50.3 % MICHAEL Comment:Testing performed by : [address], [address] Plt 162 150 - 400 K/cumm MICHAEL Comment:Testing performed by : [address] [address] MPV 11.7 9.1 - 12.3 fL MICHAEL Comment:Testing performed by : [address], [address] RBC 3.89(L) 4.30 - 5.80 M/cumm MICHAEL Comment:Testing performed by : [address], [address] MCV 85.3 81.3 - 96.4 fL MICHAEL Comment:Testing performed by : [address] [address] MCH 28.3 27.1 - 33.3 pg MICHAEL Comment:Testing performed by : [address], [address] MCHC 33.1 32.3 - 35.7 g/dL MICHAEL Comment:Testing performed by : [address], [address] RDW CV 15.9(H) 11.1 - 14.9 % MICHAEL Comment:Testing performed by : [address], [address] RDW SD 49.4(H) 35.7 - 48.1 fL MICHAEL Comment:Testing performed by : [address], [address] NRBC abs 0.00 0.00 - 0.01 K/cumm MICHAEL Comment:Testing performed by : [address] [address] Blood 01/06/2025 12:3 1 PM CDT 01/06/2025 1:56 PM CDT Shay Wright MD LAB BLOOD ORDERABLES Fin al Result Performing Organization Address [facility] Co de Phone Number MICHAEL [address] [employer] [place] [address] * (ABNORMAL) Protein / creatinine ratio, urine, random (01/06/2025 12:31 PM CDT) Protein, ur, quant 92.0 mg/dL Comment: Interpretive Data No reference range established. Current interpretive data was last revised 2018. Testing performed by: [address] [address] Creatinine Ur 112.1 mg/dL MICHAEL Comment: Interpretive Data No reference range established. Current interpretive data was last revised 2018. Testing performed by: [address] [address] Protein/creatinin e ratio 820.7(H) 0.0 - 180.0 mg/g CR MICHAEL Comment:Testing performed by : [address] [address] Urine 01/06/2025 12:3 1 PM CDT 01/06/2025 1:56 PM CDT Shay Wright MD LAB URINE ORDERABLES Fin al Result Performing Organization Address [facility] Co de Phone Number [facility] [address] [facility] [employer] [place] [address] * (ABNORMAL) Albumin Creatinine Ratio, Urine (01/06/2025 12:31 PM CDT) Albumin Ur 626.6 mg/L Comment: Interpretive Data No reference range established. Current interpretive data was last revised 2018. Testing performed by: [address] [address] Creatinine Ur 112.1 mg/dL MICHAEL Comment: Interpretive Data No reference range established. Current interpretive data was last revised 2018. Testing performed by: [address] [address] Albumin Creatinine Ratio, Ur 559(H) 1 - 29 mg/g MICHAEL Comment:Testing performed by : [address] [address] Urine 01/06/2025 12:3 1 PM CDT 01/06/2025 1:56 PM CDT Shay Wright MD LAB URINE ORDERABLES Fin al Result Performing Organization Address [facility] de Phone Number [address] [place] [email or web address] [address] * Urinalysis, microscopic only (01/06/2025 12:31 PM CDT) WBC, ur 0-5 0 - 5 /HPF Comment:Testing performed by : [address] [address] RBC, ur 0-2 0 - 2 /HPF MICHAEL Comment:Testing performed by : [address] [address] Urine 01/06/2025 12:3 1 PM CDT 01/06/2025 1:57 PM CDT Shay Wright MD LAB URINE ORDERABLES Fin al Result Performing Organization Address [facility] Co de Phone Number [address] [employer] [place] [address] * Renal function panel (01/06/2025 12:31 PM CDT) Sodium 142 135 - 145 mmol/L Comment:Testing performed by : [address], [place]., [address] Potassium, pl 4.2 3.3 - 4.9 mmol/L [facility] Comment:Testing performed by : [address], [place]., [address] Chloride 105 97 - 110 mmol/L MICHAEL Comment:Testing performed by : [address], [place]., [address] CO2 25 22 - 32 mmol/L [facility] Comment:Testing performed by : [address], [place]., [address] Anion gap 12 2 - 15 mmol/L [facility] Comment:Testing performed by : [address], [place]., [address] BUN 19 6 - 25 mg/dL [facility] Comment:Testing performed by : [address], [place]., [address] Creatinine 1.30 0.80 - 1.30 mg/dL [facility] Comment:Testing performed by : [address], [place]., [address] Glucose 88 70 - 199 mg/dL [facility] Comment: Interpretive Data Fasting glucose >/= 126 mg/dl is diagnostic for diabetes. Fasting is defined as no caloric intake for at least 8 hours. Fasting glucose between 100 mg/dl to 125 mg/dl is diagnostic of prediabetes. In a patient with classic symptoms of hyperglycemia or hyperglycemic crisis, a random glucose >/= 200 mg/dl is diagnostic for diabetes. In the absence of unequivocal hyperglycemia, results should be confirmed by repeat testing. The classification and Diagnosis of Diabetes Diabetes Care 2021; 46: S19-S40. Current interpretive data was last revised 2022. Testing performed by: [address] [address] Calcium 9.5 8.5 - 10.3 mg/dL MICHAEL Comment:Testing performed by : [address], [place]., [address] Phosphorus, pl 2.5 2.3 - 4.5 mg/dL MICHAEL Comment:Testing performed by : [address] [address] Albumin 4.4 3.5 - 5.0 g/dL [facility] Comment:Testing performed by : [address] [address] Blood 01/06/2025 12:3 1 PM CDT 01/06/2025 1:55 PM CDT Shay Wright MD LAB BLOOD ORDERABLES Fin al Result Performing Organization Address [facility] de Phone Number [facility] [address] [facility] [place] [address] * eGFR (12/30/2024 7:32 AM CDT) eGFR 68 >=60 mL/min/1. 73 m2 Comment: Interpretive Data Reference Interval Normal >/= 90 mL/min/1.73m2 Mildly decreased* 60 - 89 mL/min/1.73m2 Mildly to moderately decreased 45 - 59 mL/min/1.73m2 Moderately to severely decreased 30 - 44 mL/min/1.73m2 Severely decreased 15 - 29 mL/min/1.73m2 Kidney Failure < 15 mL/min/1.73m2 *Relative to young adult level Estimated glomerular filtration rate is determined by the 2020 CKD-EPI equation recommended by the National Kidney Foundation (A Unifying Approach to GFR Estimation: Recommendations of the NKF-ASK Task Force on Reassessing the Inclusion of Race in Diagnosing Kidney Disease, JASN 2020). The CKD-EPI equation should not be used for patients with unstable renal function and has not been validated in children and those over 70. Current interpretive data was last reviewed 2021. Testing performed by: [facility], [address] [place] [address]., [address] Blood 12/30/2024 7:32 AM CDT 12/30/2024 9:45 AM CDT Phillip Munroe MD LAB BLOOD ORDERABLES F inal Result Performing Organization Address [facility] Co de Phone Number [facility] [address] [facility] Department [place] [address] * Differential, auto (12/30/2024 7:32 AM CDT) Neutrophil abs 2.58 1.50 - 6.50 K/cumm Comment:Testing performed by : [address] [address] Imm gran abs 0.02 0.00 - 0.10 K/cumm MICHAEL Comment:Testing performed by : [address] [address] Lymphocyte abs 0.95 0.80 - 3.30 K/cumm [facility] Comment:Testing performed by : [address] [address] Monocyte abs 0.51 0.20 - 0.80 K/cumm [facility] Comment:Testing performed by : [address] [address] Eosinophil abs 0.11 0.00 - 0.50 K/cumm [facility] Comment:Testing performed by : [address] [address] Basophil abs 0.01 0.00 - 0.10 K/cumm [facility] Comment:Testing performed by : [address] [address] Neutrophil pct 61.8 % [facility] Comment: Interpretive Data Percent cell count reference ranges are not reported, since discordance with absolute values may lead to misinterpretation of CBC data. Current Interpretive Data was last revised on 2017. Testing performed by: [address] [address] Imm gran pct 0.5 % [facility] Comment: Interpretive Data Percent cell count reference ranges are not reported, since discordance with absolute values may lead to misinterpretation of CBC data. Current Interpretive Data was last revised on 2017. Testing performed by: [address] [address] Lymphocyte pct 22.7 % CERNER Comment: Interpretive Data Percent cell count reference ranges are not reported, since discordance with absolute values may lead to misinterpretation of CBC data. Current Interpretive Data was last revised on 2017. Testing performed by: [address] [address] Monocyte pct 12.2 % MICHAEL Comment: Interpretive Data Percent cell count reference ranges are not reported, since discordance with absolute values may lead to misinterpretation of CBC data. Current Interpretive Data was last revised on 2017. Testing performed by: [address] [address] Eosinophil pct 2.6 % MICHAEL Comment: Interpretive Data Percent cell count reference ranges are not reported, since discordance with absolute values may lead to misinterpretation of CBC data. Current Interpretive Data was last revised on 2017. Testing performed by: [address] [address] Basophil pct 0.2 % MICHAEL Comment: Interpretive Data Percent cell count reference ranges are not reported, since discordance with absolute values may lead to misinterpretation of CBC data. Current Interpretive Data was last revised on 2017. Testing performed by: [address] [address] Blood 12/30/2024 7:32 AM CDT 12/30/2024 9:45 AM CDT Phillip Munroe MD LAB BLOOD ORDERABLES F inal Result [facility] [facility] Department [place] [address] * Tacrolimus level trough (12/30/2024 7:32 AM CDT) [facility] Tacrolimus trough 4.1 ng/mL Comment: Interpretive Data Testing performed by liquid chromatography-tandem mass spectrometry. Therapeutic concentrations vary depending on type of transplanted organ and time elapsed since transplant. Typical trough concentrations range from 5-15 ng/mL. This test was developed and its performance characteristics determined by the [facility] consistent with CLIA requirements. This test has not been cleared or approved by the US Food and Drug administration. Current interpretive data last reviewed 2019. Testing performed by: [facility], [address] [facility], [place]., [address] Blood 12/30/2024 7:32 AM CDT 12/30/2024 1:15 PM CDT Phillip Munroe MD LAB BLOOD ORDERABLES F inal Result [facility] [address] [facility] Department [place] [address] * (ABNORMAL) CBC with auto differential (12/30/2024 7:32 AM CDT) WBC 4.18 3.80 - 9.90 K/cumm Comment:Testing performed by : [address] [address] Hgb 10.8(L) 13.0 - 17.5 g/dL MICHAEL Comment:Testing performed by : [address] [address] Hct 33.3(L) 38.9 - 50.3 % MICHAEL Comment:Testing performed by : [address] [address] Plt 152 150 - 400 K/cumm MICHAEL Comment:Testing performed by : [address] [address] MPV 11.5 9.1 - 12.3 fL MICHAEL EVANGELISTA Comment:Testing performed by : [address] [address] RBC 3.90(L) 4.30 - 5.80 M/cumm MICHAEL EVANGELISTA Comment:Testing performed by : [address] [address] MCV 85.4 81.3 - 96.4 fL MICHAEL EVANGELISTA Comment:Testing performed by : [address] [address] MCH 27.7 27.1 - 33.3 pg MICHAEL EVANGELISTA Comment:Testing performed by : [address] [address] MCHC 32.4 32.3 - 35.7 g/dL MICHAEL EVANGELISTA Comment:Testing performed by : [address] [address] RDW CV 15.9(H) 11.1 - 14.9 % MICHAEL EVANGELISTA Comment:Testing performed by : [address] [address] RDW SD 49.8(H) 35.7 - 48.1 fL MICHAEL EVANGELISTA Comment:Testing performed by : [address] [address] NRBC abs 0.00 0.00 - 0.01 K/cumm MICHAEL Comment:Testing performed by : [address] [address] Blood 12/30/2024 7:32 AM CDT 12/30/2024 9:45 AM CDT Phillip Munroe MD LAB BLOOD ORDERABLES F inal Result Performing Organization Address [facility] de Phone Number [address] [place] [email or web address] [address] * Gamma GT (12/30/2024 7:32 AM CDT) [facility] GGT 24 10 - 50 Units/L Blood 12/30/2024 7:32 AM CDT 12/30/2024 10:20 AM CDT Phillip Munroe MD LAB BLOOD ORDERABLES F inal Result Performing Organization Address [facility] de Phone Number [address] [address] * Comprehensive metabolic panel (12/30/2024 7:32 AM CDT) [facility] Sodium 143 135 - 145 mmol/L Comment:Testing performed by : [address] [address] Potassium, pl 4.3 3.3 - 4.9 mmol/L MICHAEL Comment:Testing performed by : [address] [address] Chloride 106 97 - 110 mmol/L MICHAEL Comment:Testing performed by : [address], [place]., [address] CO2 25 22 - 32 mmol/L MICHAEL Comment:Testing performed by : [address], [place]., [address] Anion gap 12 2 - 15 mmol/L MICHAEL Comment:Testing performed by : [address], [place]., [address] BUN 18 6 - 25 mg/dL [facility] Comment:Testing performed by : [address], [place]., [address] Creatinine 1.20 0.80 - 1.30 mg/dL MICHAEL Comment:Testing performed by : [address], [place]., [address] Glucose 112 70 - 199 mg/dL [facility] Comment: Interpretive Data Fasting glucose >/= 126 mg/dl is diagnostic for diabetes. Fasting is defined as no caloric intake for at least 8 hours. Fasting glucose between 100 mg/dl to 125 mg/dl is diagnostic of prediabetes. In a patient with classic symptoms of hyperglycemia or hyperglycemic crisis, a random glucose >/= 200 mg/dl is diagnostic for diabetes. In the absence of unequivocal hyperglycemia, results should be confirmed by repeat testing. The classification and Diagnosis of Diabetes Diabetes Care 202; 46: S19-S40. Current interpretive data was last revised 2022. Testing performed by: [address] [address] Calcium 9.4 8.5 - 10.3 mg/dL [facility] Comment:Testing performed by : [address] [address] Bilirubin, total 0.6 0.1 - 1.2 mg/dL MICHAEL Comment:Testing performed by : [address] [address] Protein, pl 7.3 6.5 - 8.5 g/dL MICHAEL Comment:Testing performed by : [address] [address] Albumin 4.4 3.5 - 5.0 g/dL MICHAEL EVANGELISTA Comment:Testing performed by : [address] [address] Alk phos 100 40 - 130 Units/L MICHAEL EVANGELISTA Comment:Testing performed by : [address] [address] ALT 19 7 - 55 Units/L MICHAEL Comment:Testing performed by : [address] [address] AST 19 10 - 50 Units/L MICHAEL Comment:Testing performed by : [address] [address] Blood 12/30/2024 7:32 AM CDT 12/30/2024 9:45 AM CDT Phillip Munroe MD LAB BLOOD ORDERABLES F inal Result [facility] [address] [facility] Department [place] [address] * eGFR (12/19/2024 8:45 AM CDT) eGFR 60 >=60 mL/min/1. 73 m2 Comment: Interpretive Data Reference Interval Normal >/= 90 mL/min/1.73m2 Mildly decreased* 60 - 89 mL/min/1.73m2 Mildly to moderately decreased 45 - 59 mL/min/1.73m2 Moderately to severely decreased 30 - 44 mL/min/1.73m2 Severely decreased 15 - 29 mL/min/1.73m2 Kidney Failure < 15 mL/min/1.73m2 *Relative to young adult level Estimated glomerular filtration rate is determined by the 2020 CKD-EPI equation recommended by the National Kidney [employer] (A Unifying Approach to GFR Estimation: Recommendations of the NKF-ASK Task Force on Reassessing the Inclusion of Race in Diagnosing Kidney Disease, JASN 2020). The CKD-EPI equation should not be used for patients with unstable renal function and has not been validated in children and those over 70. Current interpretive data was last reviewed 2021. Testing performed by: [address] [address] Blood 12/19/2024 8:45 AM CDT 12/19/2024 9:41 AM CDT us Phillip Munroe MD LAB BLOOD ORDERABLES F inal Result [facility] [address] [facility] Department [place] [address] * (ABNORMAL) Differential, auto (12/19/2024 8:45 AM CDT) Neutrophil abs 2.71 1.50 - 6.50 K/cumm Comment:Testing performed by : [address] [address] Imm gran abs 0.01 0.00 - 0.10 K/cumm MICHAEL Comment:Testing performed by : [address] [address] Lymphocyte abs 0.72(L) 0.80 - 3.30 K/cumm MICHAEL Comment:Testing performed by : [address] [address] Monocyte abs 0.44 0.20 - 0.80 K/cumm MICHAEL Comment:Testing performed by : [address] [address] Eosinophil abs 0.07 0.00 - 0.50 K/cumm MICHAEL Comment:Testing performed by : [address] [address] Basophil abs 0.01 0.00 - 0.10 K/cumm MICHAEL Comment:Testing performed by : [address] [address] Neutrophil pct 68.3 % MICHAEL Comment: Interpretive Data Percent cell count reference ranges are not reported, since discordance with absolute values may lead to misinterpretation of CBC data. Current Interpretive Data was last revised on 2017. Testing performed by: [address] [address] Imm gran pct 0.3 % MICHAEL Comment: Interpretive Data Percent cell count reference ranges are not reported, since discordance with absolute values may lead to misinterpretation of CBC data. Current Interpretive Data was last revised on 2017. Testing performed by: [address] [address] Lymphocyte pct 18.2 % [facility] Comment: Interpretive Data Percent cell count reference ranges are not reported, since discordance with absolute values may lead to misinterpretation of CBC data. Current Interpretive Data was last revised on 2017. Testing performed by: [address] [address] Monocyte pct 11.1 % [facility] Comment: Interpretive Data Percent cell count reference ranges are not reported, since discordance with absolute values may lead to misinterpretation of CBC data. Current Interpretive Data was last revised on 2017. Testing performed by: [address] [address] Eosinophil pct 1.8 % [facility] Comment: Interpretive Data Percent cell count reference ranges are not reported, since discordance with absolute values may lead to misinterpretation of CBC data. Current Interpretive Data was last revised on 2017. Testing performed by: [address] [address] Basophil pct 0.3 % [facility] Comment: Interpretive Data Percent cell count reference ranges are not reported, since discordance with absolute values may lead to misinterpretation of CBC data. Current Interpretive Data was last revised on 2017. Testing performed by: [address] [address] Blood 12/19/2024 8:45 AM CDT 12/19/2024 9:43 AM CDT us Phillip Munroe MD LAB BLOOD ORDERABLES F inal Result MICHAEL EVANGELISTA [address] [facility] Department [place] [address] * Tacrolimus level trough (12/19/2024 8:45 AM CDT) [facility] Tacrolimus trough 2.9 ng/mL Comment: Interpretive Data Testing performed by liquid chromatography-tandem mass spectrometry. Therapeutic concentrations vary depending on type of transplanted organ and time elapsed since transplant. Typical trough concentrations range from 5-15 ng/mL. This test was developed and its performance characteristics determined by the [facility] consistent with CLIA requirements. This test has not been cleared or approved by the [place] Food and Drug administration. Current interpretive data last reviewed 2019. Testing performed by: [facility], [address] [place]., [address] Blood 12/19/2024 8:45 AM CDT 12/19/2024 1:03 PM CDT Phlilip Munroe MD LAB BLOOD ORDERABLES F inal Result MICHAEL [facility] Department [place] [address] * (ABNORMAL) CBC with auto differential (12/19/2024 8:45 AM CDT) WBC 3.96 3.80 - 9.90 K/cumm Comment:Testing performed by : [address] [address] Hgb 10.5(L) 13.0 - 17.5 g/dL MICHAEL EVANGELISTA Comment:Testing performed by : [address] [address] Hct 32.8(L) 38.9 - 50.3 % MICHAEL EVANGELISTA Comment:Testing performed by : [address] [address] Plt 156 150 - 400 K/cumm MICHAEL EVANGELISTA Comment:Testing performed by : [address] [address] MPV 12.1 9.1 - 12.3 fL MICHAEL EVANGELISTA Comment:Testing performed by : [address] [address] RBC 3.80(L) 4.30 - 5.80 M/cumm MICHAEL EVANGELISTA Comment:Testing performed by : [address] [address] MCV 86.3 81.3 - 96.4 fL MICHAEL Comment:Testing performed by : [address], [address] MCH 27.6 27.1 - 33.3 pg MICHAEL EVANGELISTA Comment:Testing performed by : [address] [address] MCHC 32.0(L) 32.3 - 35.7 g/dL MICHAEL EVANGELISTA Comment:Testing performed by : [address], [address] RDW CV 16.2(H) 11.1 - 14.9 % MICHAEL Comment:Testing performed by : [address], [address] RDW SD 50.4(H) 35.7 - 48.1 fL MICHAEL EVANGELISTA Comment:Testing performed by : [address], [address] NRBC abs 0.00 0.00 - 0.01 K/cumm MICHAEL Comment:Testing performed by : [address], [address] Blood 12/19/2024 8:45 AM CDT 12/19/2024 9:43 AM CDT Phillip Munroe MD LAB BLOOD ORDERABLES F inal Result Performing Organization Address [facility] Co de Phone Number [place] [address] [facility] [place] [address] * Gamma GT (12/19/2024 8:45 AM CDT) GGT 24 10 - 50 Units/L Blood 12/19/2024 8:45 AM CDT 12/19/2024 10:18 AM CDT Phillip Munroe MD LAB BLOOD ORDERABLES F inal Result Performing Organization Address [facility] de Phone Number MICHAEL [facility] [place] [address] * (ABNORMAL) Comprehensive metabolic panel (12/19/2024 8:45 AM CDT) Sodium 144 135 - 145 mmol/L Comment:Testing performed by : [address] [address] Potassium, pl 4.2 3.3 - 4.9 mmol/L MICHAEL Comment:Testing performed by : [address] [address] Chloride 109 97 - 110 mmol/L MICHAEL Comment:Testing performed by : [address], [place]., [address] CO2 23 22 - 32 mmol/L MICHAEL Comment:Testing performed by : [address] [address] Anion gap 12 2 - 15 mmol/L MICHAEL Comment:Testing performed by : [address] [address] BUN 21 6 - 25 mg/dL MICHAEL Comment:Testing performed by : [address], [place]., [address] Creatinine 1.34(H) 0.80 - 1.30 mg/dL MICHAEL Comment:Testing performed by : [address] [address] Glucose 106 70 - 199 mg/dL MICHAEL Comment: Interpretive Data Fasting glucose >/= 126 mg/dl is diagnostic for diabetes. Fasting is defined as no caloric intake for at least 8 hours. Fasting glucose between 100 mg/dl to 125 mg/dl is diagnostic of prediabetes. In a patient with classic symptoms of hyperglycemia or hyperglycemic crisis, a random glucose >/= 200 mg/dl is diagnostic for diabetes. In the absence of unequivocal hyperglycemia, results should be confirmed by repeat testing. The classification and Diagnosis of Diabetes Diabetes Care 2021; 46: S19-S40. Current interpretive data was last revised 2022. Testing performed by: [address] [address] Calcium 9.6 8.5 - 10.3 mg/dL MICHAEL Comment:Testing performed by : [address] [address] Bilirubin, total 0.5 0.1 - 1.2 mg/dL MICHAEL Comment:Testing performed by : [address] [address] Protein, pl 7.3 6.5 - 8.5 g/dL MICHAEL Comment:Testing performed by : [address], [address] Albumin 4.1 3.5 - 5.0 g/dL MICHAEL Comment:Testing performed by : [address], [address] Alk phos 91 40 - 130 Units/L MICHAEL Comment:Testing performed by : [address], [address] ALT 25 7 - 55 Units/L MICHAEL Comment:Testing performed by : [address], [address] AST 20 10 - 50 Units/L MICHAEL Comment:Testing performed by : [address], [address] Blood 12/19/2024 8:45 AM CDT 12/19/2024 9:41 AM CDT Phillip Munroe MD LAB BLOOD ORDERABLES F inal Result [facility] [address] [facility] Department [place] [address] * CT abdomen pelvis without contrast (12/11/2024 12:38 PM CDT) Anatomical Region Laterality Modality Body N/A Computed Tomogra phy 12/11/2024 1:48 PM CDT Impressions 12/12/2024 4:58 AM CDT IMPRESSION: Likely stable to slightly decreased right extraperitoneal fluid collection within limitations of noncontrast technique. Dictated by: Clem Taylor MD The radiology attending physician has personally reviewed this study, and had reviewed and/or edited this written report and agrees with it. Electronically signed by: Anjelica Teixeira M.D. Narrative 12/12/2024 4:58 AM CDT EXAMINATION: CT ABDOMEN PELVIS WO CONTRAST HISTORY: Ventral incisional hernia repair reconstruction 09/02/2024 complicated by abdominal wall fluid collection. TECHNIQUE: Transaxial computed tomographic images of the abdomen and pelvis were obtained without intravenous contrast according to the standard protocol. COMPARISON: CT 11/12/2024, 05/22/2023 FINDINGS: Unchanged nodularity within left lower lobe at site of prior consolidation may represent postinfectious scarring with mucous plugging. No pleural effusion. Stable tiny pulmonary nodules. For reference, unchanged dating back to 05/22/2023 3 mm benign right middle lobe pulmonary nodule. Postsurgical changes from liver transplantation. Normal noncontrast appearance the spleen, pancreas, bilateral adrenal glands. No hydronephrosis. Punctate nonobstructing right renal stone. The large and small bowel are normal caliber. Appendix is normal. Stomach is normal. Proximal duodenal diverticulum. Minimal calcification of the abdominal aorta without dilatation. No abdominal or pelvic lymphadenopathy. No bowel obstruction or pneumoperitoneum. Likely stable to slightly decreased right abdominal extraperitoneal fluid collection with maximum axial dimensions of 11.3 x 1.0 cm. Evaluation is slightly limited in absence of intravenous contrast. Urinary bladder is normal. Prostate is enlarged. Small fat containing right inguinal hernia. No suspicious osseous lesion. Procedure Note Anjelica Teixeira MD - 12/12/2024 EXAMINATION: CT ABDOMEN PELVIS WO CONTRAST HISTORY: Ventral incisional hernia repair reconstruction 09/02/2024 complicated by abdominal wall fluid collection. TECHNIQUE: Transaxial computed tomographic images of the abdomen and pelvis were obtained without intravenous contrast according to the standard protocol. COMPARISON: CT 11/12/2024, 05/22/2023 FINDINGS: Unchanged nodularity within left lower lobe at site of prior consolidation may represent postinfectious scarring with mucous plugging. No pleural effusion. Stable tiny pulmonary nodules. For reference, unchanged dating back to 05/22/2023 3 mm benign right middle lobe pulmonary nodule. Postsurgical changes from liver transplantation. Normal noncontrast appearance the spleen, pancreas, bilateral adrenal glands. No hydronephrosis. Punctate nonobstructing right renal stone. The large and small bowel are normal caliber. Appendix is normal. Stomach is normal. Proximal duodenal diverticulum. Minimal calcification of the abdominal aorta without dilatation. No abdominal or pelvic lymphadenopathy. No bowel obstruction or pneumoperitoneum. Likely stable to slightly decreased right abdominal extraperitoneal fluid collection with maximum axial dimensions of 11.3 x 1.0 cm. Evaluation is slightly limited in absence of intravenous contrast. Urinary bladder is normal. Prostate is enlarged. Small fat containing right inguinal hernia. No suspicious osseous lesion. IMPRESSION: IMPRESSION: Likely stable to slightly decreased right extraperitoneal fluid collection within limitations of noncontrast technique. Dictated by: Clem Taylor MD The radiology attending physician has personally reviewed this study, and had reviewed and/or edited this written report and agrees with it. Electronically signed by: Anjelica Teixeira M.D. Bruno Merritt MD IMG CT PROCEDURES Final Re sult * Ambulatory Investigational Referral to [facility] Home Infusion (12/11/2024 9:41 AM CDT) Marybeth Hernandez MD OUTPATIENT REFERRAL ORD ERABLES Final Result * (ABNORMAL) Lipid panel (09/02/2024 10:50 PM CDT) Cholesterol 99 30 - 199 mg/dL Comment: Interpretive Data Ages < or = 19 years Acceptable: <170 mg/dL Borderline high: 170-199 mg/dL High: >or= 200 mg/dL Ages > or = 20 years Desirable: <200 mg/dL Borderline high: 200-239 mg/dL High: >or= 240 mg/dL Literature References: 1. Expert Panel on Integrated Guidelines for Cardiovascular Health and Risk Reduction in Children and Adolescents. Pediatrics 2011;128:S213 2. NCEP Expert Panel. Circulation 2004;110:227 Current Interpretive Data was last revised on 2018. Triglycerides 114 <=149 mg/dL [facility]EL [facility] Comment: Interpretive Data Ages < or = 9 years Acceptable: <75 mg/dL Borderline high: 75-99 mg/dL High: >or= 100 mg/dL Ages 10 to 20 years Acceptable: <90 mg/dL Borderline high: 90-129 mg/dL High: >or= 130 mg/dL Ages > or = 20 years Desirable: <150 mg/dL Borderline high: 150-199 mg/dL High: 200-499 mg/dL Very high: >or= 499 mg/dL Literature References: 1. Expert Panel on Integrated Guidelines for Cardiovascular Health and Risk Reduction in Children and Adolescents. Pediatrics 2011;128:S213 2. NCEP Expert Panel. Circulation 2004;110:227 Current Interpretive Data was last revised on 2018. HDL 29(L) >=40 mg/dL [facility] Comment: Interpretive Data Ages < or = 19 years Acceptable: >45 mg/dL Borderline low: 40-45 mg/dL Low: <40 mg/dL Ages > or = 20 years Desirable: >or= 60 mg/dL Low: <40 mg/dL Literature References: 1. Expert Panel on Integrated Guidelines for Cardiovascular Health and Risk Reduction in Children and Adolescents. Pediatrics 2011;128:S213 2. NCEP Expert Panel. Circulation 2004;110:227 Current Interpretive Data was last revised on 2018. LDL, calculated 49 <=129 mg/dL [facility] Comment: Interpretive Data Ages < or = 19 years Acceptable: <110 mg/dL Borderline high: 110-129 mg/dL High: >or= 130 mg/dL Ages > or = 20 years Optimal: <100 mg/dL Near optimal: 100-129 mg/dL Borderline high: 130-159 mg/dL High: >160 mg/dL Calculated using the Terry LDL-C estimating equation. This equation was implemented on 2024. Prior to this date LDL-C was estimated using the Friedewald equation. Literature References: 1. Expert Panel on Integrated Guidelines for Cardiovascular Health and Risk Reduction in Children and Adolescents. Pediatrics 2011;128:S213 2. NCEP Expert Panel. Circulation 2004;110:227 3. Terry Aguirre al. ОЛЬГА Cardiol. 2020 October 03;5(5):540-548. doi: [email or web address] Current Interpretive Data was last revised on 2024. Non-HDL Cholesterol 70 mg/dL MICHAEL [facility] Comment: Interpretive Data Ages < or = 19 years Acceptable: <120 mg/dL Borderline high: 120-144 mg/dL High: >145 mg/dL Ages > or = 20 years When triglycerides are >200 mg/dL, Non-HDL cholesterol is a secondary target of therapy with treatment goals that are 30 mg/dL greater than the LDL cholesterol target. Literature References: 1. Expert Panel on Integrated Guidelines for Cardiovascular Health and Risk Reduction in Children and Adolescents. Pediatrics 2011;128:S213 2. NCEP Expert Panel. Circulation 2004;110:227 Current Interpretive Data was last revised on 2018. Chol/HDL ratio 3 [facility] Blood 09/02/2024 10:5 0 PM CDT 09/03/2024 12:43 AM CDT Elia Hunter MD LAB BLOOD ORDERABLES Final Res ult Performing Organization Address [facility] Co de Phone Number [facility] [place] [address] * (ABNORMAL) POCT hemoglobin A1c (08/20/2024 9:02 AM CDT) Pathologist [facility] Hgb A1C, POC 6.0(H) 4.0 - 5.6 % Est Average Gluc POC 126 mg/dL [facility] Comment: The ADA recommends reporting an estimated Average Glucose (eAG) with all Hemoglobin A1c results using the equation derived from a study of 507 normal and diabetic adults. Minority populations were underrepresented and children were not included. (Diabetes Care 31:3282-1701, 2008). The eAG is not equivalent to a fasting glucose. Blood 08/20/2024 9:02 AM CDT 08/20/2024 9:02 AM CDT Elia Hunter MD POINT OF CARE TEST ORDERABLES Final Result Performing Organization Address [facility] Co de Phone Number [facility] [email or web address] [address] * Hepatitis C (HCV) RNA PCR, quantitative Blood (07/13/2023) Pathologist [facility] SCRIBED HCV RNA non reactive non reactive - non reactive IUnit/mL TXP NO LAB FOUND Blood 07/13/2023 Historical Provider LAB MICROBIOLOGY - GENERA L ORDERABLES Final Result Performing Organization Address [facility]/ZIP Co de Phone Number TXP NO LAB FOUND * PSA screen (04/05/2023 7:45 AM CDT) PSA-Total 0.53 <=5.40 ng/mL [facility] Comment: Interpretive Data AGE SEX REFERENCE INTERVAL 0 minutes-150 years Female None 0 minutes-49 years Male None 50-59 years Male 0-3.90 60-69 years Male 0-5.40 70-79 years Male 0-6.20 80-150 years Male 0-6.20 The Erin PSA Total assay procedure was used. Results from different manufacturers or methods may not be comparable. Serial testing should be performed using the same method. Current interpretive data last revised 21. Blood 04/05/2023 7:45 AM CDT 04/05/2023 8:52 AM CDT Narrative [facility] - 04/05/2023 10:26 AM CDT Please add the following comment to each lab: This lab is being obtained as part of a liver transplant evaluation, is time sensitive, and should only be drawn during the evaluation visit at [facility] Lab. Yanick Hurtado MD LAB BLOOD ORDERABLES Final Res ult Performing Organization Address [facility] de Phone Number [facility] Department [place] [address] from Last 3 Months or Most Recently Relevant to Health Maintenance Insurance FORMERLY [facility] INCLUDE 234 BEDS AT THE [facility] HMO/PPO Address: [facility] [address] [place] [address] [employer] EM[employer] HEALTH PLANS Address: [facility] [address] [place] [address] [employer] ACC[employer] CHO[employer] ACCESS CHOICE TRANSPLANT BDCT TRANSPLANT BDCT Advance Directives For more information, please contact: [phone] * Full Code (Latest Code Status on File) Date Activated Date Inactivated Comments 02/17/2025 7:20 AM 02/18/2025 4:59 AM * Full Code Date Activated Date Inactivated Comments 11/04/2024 8:24 AM 11/05/2024 4:53 AM * Full Code Date Activated Date Inactivated Comments 10/18/2024 5:56 PM 10/25/2024 8:02 PM * Full Code Date Activated Date Inactivated Comments 09/02/2024 2:53 PM 09/06/2024 3:38 PM * Full Code Date Activated Date Inactivated Comments 06/14/2023 6:19 PM 06/20/2023 6:26 PM Care Teams Needle Loom Operator Relationship Specialty Start Date End Date Bhupendra Barr DO [address] [facility] HEPATOLOGY [id number] PCP - General Internal Medicine 05/22/23 [place] [address] [facility] DIV IM INFECTIOUS DISEASE [address] PCP - Home Infusion Attending Infectious Diseases 11/03/24 Dion Hopper MD [address] [facility] HEPATOLOGY [id number] Referring Physician Gastroenterology 02/02/23 Deepali Carl RN Credit Card Specialist 06/15/23 Radha Carlson, ZURI Registered Nurse 03/06/25 Phan Mccann MD [address] [facility] DEPT RADIOLOGY [address] Consulting Physician Radiology 03/06/25
--- OUTSIDE RECORDS SUMMARY | 2025-03-06 13:03 | XMS_ITS | Encounter Summary ---
Author Organization [facility] Healthcare Address [address] [place] [address] Care Team Providers Care Mining Helper Name Role Phone Dion Hopper MD Unavailable [phone] Bhupendra Barr DO Primary Care Provider [phone] Deepali Carl RN Unavailable [phone]- [phone] Marybeth Hernandez MD Unavailable [phone] Radha Carlson RN Unavailable Unavailable Phan Mccann MD Unavailable [phone] Encounter Details Date Type Department Care Team (Late st Contact Info) Description 02/12/2025 Telephone [facility] Radiology [address] [place] [address] Guanakito Victor, RN Social History Tobacco Use Types Packs/Day Years Used Date Smoking Tobacco: Never Passive Smoke Exposure: Never Smokeless Tobacco: Never Alcohol Use Standard Drinks/Week Comments Yes 0 [...] relatives? Three times a week 06/15/2023 Attends Religion Services Not on file 06/15 Active Member [...] making you feel afraid or unsafe? 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 Gender Identity Male 02/07/2023 10:43 AM CDT Sexual Orientation Straight 02/07/2023 10 :43 AM CDT documented as of this encounter Miscellaneous Notes * Telephone Encounter - Guanakito Victor RN - 02/12/2025 10:59 AM CDT documented in this encounter Plan of Treatment Scheduled Procedures Name Priority Associated Diagnoses Date/Ti me TRANSPLANT LIVER Hepatocellular carcinoma (HCC) documented as of this encounter Visit Diagnoses Not on filedocumented in this encounter Care Teams Mining Helper Relationship Specialty Start Date End Date Bhupendra Barr DO [address] [facility] [place] [phone] PCP - General Internal Medicine 05/22/23 Marybeth Hernandez MD [id number] [place] [address] [place] [address] PCP - Home Infusion Attending Infectious Diseases 11/03/24 Dion Hopper MD [address] [facility] [place] [phone] Referring Physician Gastroenterology 02/02/23 Deepali Carl, ZURI Chainstitch Tunnel Elastic Operator 06/15/23 Radha Carlson, RN Registered Nurse 03/06/25 Phan Mccann MD [address] [facility] [place] [address] Consulting Physician Radiology 03/06/25 documented as of this encounter
--- OUTSIDE RECORDS SUMMARY | 2025-03-06 13:03 | XMS_ITS | Encounter Summary ---
Author Organization [facility] Healthcare Address [address] [place] [address] Care Team Providers Care Placement Specialist Name Role Phone Dion Hopper MD Unavailable [phone] Bhupendra Barr DO Primary Care Provider [phone] Deepali Carl RN Unavailable [phone]- [phone] Marybeth Hernandez MD Unavailable [phone] Radha Carlson RN Unavailable Unavailable Phan Mccann MD Unavailable [phone] Encounter Details Date Type Department Care Team (Late st Contact Info) Description 02/12/2025 Telephone [facility] Radiology [address] [address] Nathaniel Robins, ZURI Social History Tobacco Use Types Packs/Day Years [...] relatives? 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 Gender Identity Male 02/07/2023 10:43 AM CDT Sexual Orientation Straight 02/07/2023 10 :43 AM CDT documented as of this encounter Miscellaneous Notes * Telephone Encounter - Nathaniel Robins RN - 02/12/2025 8:49 AM CDT Preprocedure Phone Call Procedure Time Verified: Yes Arrival Time Verified: Yes Procedure Location Verified: Yes Medical History Reviewed: Yes NPO Status Reinforced: Yes Ride and Caregiver Arranged: Yes Ride Caregiver Provider: Patient Knows to Bring Current Medications: Yes Patient Knows to Bring CPAP: Yes Is Patient on Home Ventilator?: No Is Patient on Blood Thinners?: Yes documented in this encounter Plan of Treatment Scheduled Procedures Name Priority Associated Diagnoses Date/Ti me TRANSPLANT LIVER Hepatocellular carcinoma (HCC) documented as of this encounter Visit Diagnoses Not on filedocumented in this encounter Discontinued Medications Medication Sig Discontinue Reason Start Date End Da te atorvastatin (LIPITOR) 10 mg tabletIndications:hyperl ipidemia Take 1 tablet by mouth every morning Patient Reported 02/12/2025 documented as of this encounter Care Teams Placement Specialist Relationship Specialty Start Date End Date Bhupendra Barr DO [address] [facility] [place] [phone] PCP - General Internal Medicine 05/22/23 [place] [id number] [facility] DIV [place] [address] PCP - Home Infusion Attending Infectious Diseases 11/03/24 Dion Hopper MD [address] [facility] [place] [address] Referring Physician Gastroenterology 02/02/23 Deepali Carl, ZURI Hospice Home Health Aide 06/15/23 Radha Carlson, RN Registered Nurse 03/06/25 Phan Mccann MD [address] [facility] [place] [address] Consulting Physician Radiology 03/06/25 documented as of this encounter
--- OUTSIDE RECORDS SUMMARY | 2025-03-06 13:03 | XMS_ITS ---
Author Organization [address] Address [address] [place] [address] Care Team Providers Care Television Audio Engineer Name Role Phone Dion Hopper MD Unavailable [phone] Bhupendra Barr DO Primary Care Provider + [phone] Deepali Carl RN Unavailable [phone] Marybeth Hernandez MD Unavailable [phone] Radha Carlson RN Unavailable Unavailable Phan Mccann MD Unavailable [phone] Active Problems Patient Care Coordination No te Formatting of this note migh t be different from the original. SURGEON Dr. Yris Fulton is president financial institution covering this patient. Labs: [facility] Name:[facility] Timeframe orders are good for: 6 months [...] to hospital for lumbar puncture for possible TEMPLATE CHECKER involvement of cryptococcus infection in the setting [...] to hospital for lumbar puncture for possible TEMPLATE CHECKER involvement of cryptococcus infection in the setting [...] to hospital for lumbar puncture for possible TEMPLATE CHECKER involvement of cryptococcus infection in the setting [...] to hospital for lumbar puncture for possible TEMPLATE CHECKER involvement of cryptococcus infection in the setting [...] will be part of treatment for either TEMPLATE CHECKER infection or isolated antigenemia Assessment & Plan (10/21/2024 10:59 AM CDT): Presented to the hospital with a complain of low grade fevers with 100.7, shortness of breath ,cough with yellow phlegm discharge and right upper quadrant/epigastric abdominal pain. Was seen by Infectious Disease team on 10/15 and recommended to come to hospital for lumbar puncture for possible TEMPLATE CHECKER involvement of cryptococcus infection in the setting [...] Plan Pending LP to rule out possible TEMPLATE CHECKER involvement of cryptococcus infection, IR and procedure [...] to hospital for lumbar puncture for possible TEMPLATE CHECKER involvement of cryptococcus infection in the setting of positive cryptococcal antigen results. Could also be related to abodminal fluid collection as below Reports mild pain at his neck area with head/neck movements sometimes Cryptococcus Serum Antigen 10/15/2024 : Positive Coccidiodes 10/15/2024 : Negative Histoplasma Urine Antigen 10/15/2024 : Negative - CT head 10/20 negative Plan Pending LP to rule out possible TEMPLATE CHECKER involvement of cryptococcus infection, likely Monday and [...] to hospital for lumbar puncture for possible TEMPLATE CHECKER involvement of cryptococcus infection in the setting [...] done Pending LP to rule out possible TEMPLATE CHECKER involvement of cryptococcus infection, likely Monday after [...] to hospital for lumbar puncture for possible TEMPLATE CHECKER involvement of cryptococcus infection in the setting [...] recommendations Pending LP to rule out possible TEMPLATE CHECKER involvement of cryptococcus infection Follow CBC Monitor [...] 06/27/2016 Assessment & Plan (06/30/2023 11:49 AM SECURITY REP): Reasonable control today. On amlodipine and carvedilol. [...] inpatient Assessment & Plan (06/22/2017 10:11 AM SECURITY REP): He was given new Airfit P 10 large nasal pillows with head gear and adjustment clips. He will strive to increase his sleep time with his APAP to 7 hours nightly. Type 2 diabetes mellitus 08/18/2015 Overview (09/04/2023): Type 2 diabetes mellitus without complication Assessment & Plan (10/25/2024 8:11 AM CDT): [facility], Lantus 8 Units at AM and lispro SSI (pt mostly determines his insulin needs with meals).[id number] 08/2024: 6 - cont lantus + 5 with meals (pt agreeable to this option and he sometimes refuses based on what he eats which is acceptable) + SSI Assessment & Plan (10/24/2024 7:28 AM CDT): [facility], Lantus 8 Units at AM and lispro SSI (pt mostly determines his insulin needs with meals).[id number] 08/2024: 6 - cont lantus + 5 with meals (pt agreeable to this option and he sometimes refuses based on what he eats which is acceptable) + SSI Assessment & Plan (10/23/2024 7:47 AM CDT): [facility], Lantus 8 Units at AM and lispro SSI (pt mostly determines his insulin needs with meals).UijacfzpinU4j 08/2024: 6 - cont lantus + 5 with meals (pt agreeable to this option and he sometimes refuses based on what he eats which is acceptable) + SSI Assessment & Plan (10/22/2024 7:59 AM CDT): [facility], Lantus 8 Units at AM and lispro SSI (pt mostly determines his insulin needs with meals).[id number] 08/2024: 6 - cont lantus + 5 with meals (pt agreeable to this option and he sometimes refuses based on what he eats which is acceptable) + SSI Assessment & Plan (10/21/2024 10:59 AM CDT): [facility], Lantus 8 Units at AM and lispro SSI (pt mostly determines his insulin needs with meals).[id number] 08/2024: 6 - cont lantus + 5 with meals (pt agreeable to this option and he sometimes refuses based on what he eats which is acceptable) + SSI Assessment & Plan (10/20/2024 8:59 AM CDT): On Trulicity, Lantus 8 Units at AM and lispro SSI (pt mostly determines his insulin needs with meals).[id number] 08/2024: 6 - cont lantus + 5 with meals (pt agreeable to this option and he sometimes refuses based on what he eats which is acceptable) + SSI Assessment & Plan (10/19/2024 1:02 PM CDT): On Trulicity, Lantus 8 Units at AM and lispro SSI (pt mostly determines his insulin needs with meals).KdjcebqlggT2w 08/2024: 6 Continue home regimen with insulin sliding scale while inpatient Monitor blood glucose levels Assessment & Plan (10/18/2024 10:11 PM CDT): On Trulicity, Lantus 8 Units at AM and Lispro 8 Units TID with meals at home [id number] 08/2024: 6 Continue home regimen with insulin sliding scale while inpatient Monitor blood glucose levels Assessment & Plan (06/30/2023 11:45 AM SECURITY REP): Will continue current regimen Lantus 26 units [...] of medial collateral ligament of knee 10/2011 Current Treatment and Therapy Plans No current plan information found. Past Treatment and Therapy Plans No past plan information found. Lifetime Dose Tracking * Chemical Lifetime Dose Automatic Entry Manual Entr y Fluoro Time 102.5 minutes 102.5 minutes 0 minutes Air kerma at the reference point (Ka,r) 6,640 mGy 6 ,640 mGy 0 mGy DLP 3,780 mGycm 3,780 mGycm 0 mGycm Resolved Problems Problem Noted Date Diagnosed Date [...] ascites 02/28/2024 Secondary esophageal varices without bleeding 12/28/1906/19/2024 Portal hypertension 12/27/2022 06/19/19 Fatty (change of) liver, not elsewhere classified 03/12/2021 02/28/2024 Adiposity 08/18/2015 06/19/2024 Overview (09/09/2016): Obesity (BMI 30.0-34.9) Pain in wrist 05/15/2014 06/19/2024 Complete tear of anterior cr uciate ligament of knee 01/03/2012 02/28/2024 Knee pain 12/05/2011 06/19/2024
--- OUTSIDE RECORDS SUMMARY | 2025-03-06 13:03 | XMS_ITS | Clinical Summary ---
Author Organization [facility] Address [address] [place] [address] Phone Care Team Providers Care Tufter Operator Name Role Phone Bhupendra Barr DO Primary Care Provider Allergies No known active allergies Medications metFORMIN (GLUCOPHAGE) 500 mg tablet Take 2,000 mg by mouth one time only. 0 Active tamsulosin (FLOMAX) 0.4 mg capsule 0.4 mg. As needed for seasonal allergies Active lisinopriL (PRINIVIL) 10 mg tablet Take 10 mg by mouth daily. Active dulaglutide 4.5 mg/0.5 mL subcutaneous pen injector 4.5 mg every 7 days. 2 Active Active Problems Problem Noted Date Diagnosed Date Abnormal MRI of abdomen 12/27/2022 Secondary esophageal varices without bleeding Portal hypertension 12/27/2022 Liver lesion 03/12/2021 Hepatic cirrhosis 08/11/2020 History of colon polyps--due next colonoscopy 05/04/2020 Family History Medical History Relation Name Comments Other Mother pancreatic canc er Colon Cancer Other uncle Relation Name Status Comments Mother Other Social History Tobacco Use Types Packs/Day Years Used Date Smoking Tobacco: Never Smokeless Tobacco: Never Tobacco Cessation:Counseling Given: Not Answered Alcohol Use Standard Drinks/Week Comments Not Currently 0 (1 standard drink = 0.6 oz pur e alcohol) Sex and Gender Information Value Date Recorded Sex Assigned at Not on file Legal Sex Male 12:04 PM CDT Gender Identity Not on file Sexual Orientation Not on file Last Filed Vital Signs Vital Sign Reading Time Taken Comments Blood Pressure 150/81 12/27/2022 1:21 PM CDT Pulse 66 12/27/2022 1:21 PM CDT Temperature 36.1 C (97 F) 05/04/2020 11:07 AM HAND SANDER Respiratory Rate 18 05/04/2020 11:22 AM HAND SANDER Oxygen Saturation 98% 05/04/2020 11:22 AM HAND SANDER Inhaled Oxygen Concentration - - Weight 80.5 kg (177 lb 6.4 oz) 12/27/2022 1:18 P M CDT Height 170.2 cm (5' 7) 12/27/2022 1:18 PM CDT Body Mass Index 27.78 12/27/2022 1:18 PM CDT Plan of Treatment Health Maintenance Due Date Last Done Comments DIABETES ANNUAL FOOT EXAM 1979 DIABETES ANNUAL RETINAL EXAM 1979 DIABETES MICROALBUMIN ANNUAL SCREEN 1979 DTAP/TDAP/TD VACCINES (1 - Tdap) 1980 ZOSTER VACCINE (1 of 2) 1980 FIT-DNA Q 3 years 2006 FIT/FOBT Q 1 year 2006 Flex Sig/CT Colonography Q 5 years 2006 LDL CHOLESTEROL ANNUAL 04/14/2021 04/14/2020 RSV VACCINE (60+ or ) (1 - Risk 60-74 years 1-dose series) 2021 DIABETES HBA1C Q 6 MONTHS 10/13/20242023, 07/22/2020, 04/14/2020 INFLUENZA VACCINE (#1) 2025 04/29/2024, 2019 COLORECTAL SCREENING 05/04/2025 05/04/2020, 05/04/20 20 Colorectal Cancer Screening 05/04/2025 Procedures Procedure Name Priority Date/Time Associated Diagnosis Comments COLONOSCOPY REPORT 05/04/2020 11 :07 AM HAND SANDER LIPID PANEL Routine 04/14/2020 7:49 AM HAND SANDER Thrombocytopenia, unspecified Diabetes mellitus (CMS/HCC) Hyperglyceridemia HEMOGLOBIN A1C Routine 04/14/2020 7:49 AM HAND SANDER Thrombocytopenia, unspecified Diabetes mellitus (CMS/HCC) Hyperglyceridemia from Last 3 Months or Most Recently Relevant to Health Maintenance Results * COLONOSCOPY REPORT (05/04/2020 11:07 AM HAND SANDER) Narrative Procedure Note Dion Hopper MD - 05/04/2020 11:06 AM CST [facility] Endoscopy Patient Name: Asha Iverson Procedure Date: 05/04/2020 Date of : 1960 Admit Type: Outpatient Attending MD: Dion Hopper MD Procedure: Colonoscopy Indications: Surveillance: Personal history of colonic polyps (unknown histology) on last colonoscopy more than 5 years ago Providers: Dion Hopper MD Referring MD: Yanick Cobb MD Medicines: TIVA Complications: No immediate complications. Procedure: Informed consent was obtained for the procedure, including moderate sedation after risks were discussed. Based on the pre-procedure assessment, including review of the patient's medical history, medications, allergies, and review of systems, the patient was deemed to be an appropriate candidate for sedation. A timeout was performed. Continuous ECG monitoring, pulse oximetry, blood pressure monitoring, and direct observation were performed. The scope was introduced through the anus and advanced to the terminal ileum. The colonoscopy was performed without difficulty. The patient tolerated the procedure well. The quality of the bowel preparation was good. Estimated Blood Loss: Estimated blood loss was minimal. Findings: Two sessile polyps were found in the transverse colon. The polyps were 3 mm in size. These polyps were removed with a piecemeal technique using a cold biopsy forceps. Resection and retrieval were complete. Minimally oozing hemorrhoids were found during retroflexion. The hemorrhoids were medium-sized. The exam was otherwise without abnormality. Impression: - Two 3 mm polyps in the transverse colon, removed piecemeal using a cold biopsy forceps. Resected and retrieved. - Non-bleeding hemorrhoids. - The examination was otherwise normal. Recommendation: - Repeat colonoscopy in 5 years for surveillance. - Consider colon and rectal surgery assessment for hemorrhoid treatment. Dion Hopper MD 05/04/2020 11:06:33 AM This report has been signed electronically. Number of Addenda: [phone]; [place] [address] Dion Hopper MD GI PROCEDURE ORDERABLES Claudine l Result * (ABNORMAL) HEMOGLOBIN A1C (04/14/2020 7:49 AM HAND SANDER) HEMOGLOBIN A1C 6.4(H) <=5.6 % 04/14/2020 10:23 AM [facility] EST. AVG GLUCOSE, A1C 137 mg/dL 04/14/2020 10:23 AM [facility] Blood Venipuncture / Unknown 04/14/2020 7:49 AM HAND SANDER 04/14/2020 7:49 AM HAND SANDER [facility] - 04/14/2020 10:23 AM HAND SANDER HGB A1C INTERPRETATION NORMAL: <5.7% PRE-DIABETES: 5.7 - 6.4% DIABETES: 6.5% OR GREATER Yanick Cobb MD CHEMISTRY ORDERABLES Final Resu lt [facility] CLIA# [id number] [place] [address] * (ABNORMAL) LIPID PANEL (04/14/2020 7:49 AM HAND SANDER) CHOLESTEROL 167 <200 mg/dL 04/14/2020 10:24 AM [facility] TRIGLYCERIDE 101 <150 mg/dL 04/14/2020 10:24 AM [facility] HDL 62(H) 40 - 59 mg/dL 04/14/2020 10:24 AM [facility] LDL CALCULATED 85 <100 mg/dL 04/14/2020 10:24 AM [facility] NON-HDL CHOLESTEROL 105 <130 mg/dL 04/14/2020 10:24 AM [facility] Blood Venipuncture / Unknown 04/14/2020 7:49 AM HAND SANDER 04/14/2020 7:49 AM HAND SANDER Narrative [facility] - 04/14/2020 10:24 AM HAND SANDER TOTAL CHOLESTEROL mg/dL Desirable <200 Borderline high 200-239 High >=240 TRIGLYCERIDES mg/dL Normal <150 Borderline high 150-199 High 200-499 Very high >=500 HDL CHOLESTEROL mg/dL Low <40 Normal 40-59 Desirable >=60 NON HDL CHOLESTEROL mg/dL Optimal <130 Near Optimal 130-159 Borderline High 160-189 Very High >=190 CALCULATED LDL mg/dL LDL <70, OPTIMAL if have Atherosclerotic cardiovascular disease (ASCVD) or intermediate or higher (>7.5%) 10 year risk of ASCVD including most adults with diabetes. LDL <100, Optimal in adult patients with low (<7.5%) 10 year ASCVD risk LDL 100-160, Suboptimal LDL >160, High LDL >190, Very high ATPIII Guidelines Reference Ranges for Lipid Panels (NCEP/AMA) . Yanick Cobb MD CHEMISTRY ORDERABLES Final Resu lt [facility]# [id number] [place] [address] from Last 3 Months or Most Recently Relevant to Health Maintenance Insurance BLUE ACCESS CHOICE Care Teams Tufter Operator Relationship Specialty Start Date End Date Bhupendra Barr DO [address] [address] PCP - General Internal Medicine 12/01/20
--- OUTSIDE RECORDS SUMMARY | 2025-03-06 13:03 | XMS_ITS | Encounter Summary ---
Author Organization [facility] Healthcare Address [address] [place] [address] Care Team Providers Care Stretcher Drier Operator Name Role Phone Dion Hopper MD Unavailable [phone] Bhupendra Barr DO Primary Care Provider [phone] Deepali Carl RN Unavailable [phone]- [phone] Gatito Espinoza RN Unavailable UnavailMarybeth Sofia MD Unavailable [phone] Lilian Barker [facility] Unavailable Radha Villalta RN Unavailable Unavailable Phan Mccann MD Unavailable [phone] Encounter Details Date Type Department Care Team (Late st Contact Info) Description 11/11/2024 Telephone [facility] Home Care Services [address] [place] [address] [address] [place] [address] Lilian Barker, [facility] Social History Tobacco Use Types Packs/Day Years [...] relatives? Three times a week 06/15/2023 Attends Sikhism Services Not on file 06/15 Active Member of Clubs or Organizations Not on f ile 06/15/2023 Attends Club or Organization Meetings Not on elieser e 06/15/2023 Are you , , di vorced, , never , or living with a partner? 06/15/2023 AUDIT-C Answer Date Recorded Q1: How often do you have a drink containing alcohol? Never 11/04/2024 Q2: How many drinks containi ng alcohol do you have on a typical day when you are drinking? Patient does not drink Q3: How often do you have si x or more drinks on one occasion? Never 11/04/2024 Overall Financial Resource Strain (CARDIA) Answe r [...] on file Legal Sex Male 7:23 PM CAR[employer]ON C[employer] Gender Identity Male 02/07/2023 10:43 AM CDT Sexual Orientation Straight 02/07/2023 10 :43 AM CDT documented as of this encounter Plan of Treatment Scheduled Procedures Name Priority Associated Diagnoses Date/Ti me TRANSPLANT LIVER Hepatocellular carcinoma (HCC) documented as of this encounter Visit Diagnoses Not on filedocumented in this encounter Care Teams Stretcher Drier Operator Relationship Specialty Start Date End Date Bhupendra Barr DO [address] [facility]3] [place] [id number] PCP - General Internal Medicine 05/22/23 Marybeth Hernandez [place] [id number] [place] [address] DIV [place] [address] PCP - Home Infusion Attending Infectious Diseases 11/03/24 Dion Hopper MD [address] [facility]3] [place] [id number] Referring Physician Gastroenterology 02/02/23 Deepali Carl, [facility] Pharmacology Associate 06/15/23 Gatito Espinoza, [facility] Home Infusion Nursing 11/02/2411/03 Lilian Barker, [facility] Pharmacist Pharmacy 11/06/24 11/13/24 Radha Carlson, RN Registered Nurse 03/06/25 Phan Mccann MD [address] [facility] [place] [address] Consulting Physician Radiology 03/06/25 documented as of this encounter
--- OUTSIDE RECORDS SUMMARY | 2025-03-06 13:03 | XMS_ITS ---
Author Organization [address] Address [address] [place] [address] Care Team Providers Care Dexigraph Operator Name Role Phone Dion Hopper MD Unavailable [phone] Bhupendra Barr DO Primary Care Provider [phone]- [phone] Deepali Carl RN Unavailable + [phone] Marybeth Hernandez MD Unavailable [phone] Radha Carlson RN Unavailable Unavailable Phan Mccann MD Unavailable [phone] Transplant Episode Liver Recipient [facility] ([place], [place]) - [facility] Organ Received: Liver Transplanted on 06/14/2023 Marked as Active Follow-up on 06/14/2023 Reason: Transplanted at [facility] Liver CoordinatorDeepali Carl RN Fax: N/A Email: N/A [place] Organ Diagnosis Organ Primary Contributory Liver Primary Liver Malignancy: Hepato ma (HCC) and Cirrhosis Donor Information Organ ABO Source Meets Risk Criteria HLA Match Mismatches Cross Match Liver Transplanted O DCD No A: B: DR: Liver Donor Serology Results Anti-CMV CMV IgG: Positive EBV IgG EBV VCA IgG: Negative Anti-HBcAb HBC Total: Negative HBsAg HBsAg: Negative HBV DNA No results on file Anti-HCV HCV: Negative Anti-HIV I/II No results on file Anti-HTLV I/II HTLV: Not Done RPR/VDRL RPR: Negative EBV IgM EBV VCA IgM: Negative HBsAb HBsAb: Not Done EBNA No results on file Toxoplasma Toxoplasma IgG: Negative SARS CoV-2 No results on file Care Team Name Role Phone Fax Email Deepali Carl RN Liver Coordinator [phone] N/A N/A Deepika Fulton Client Integration Manager [phone] N/A N/A Dion Hopper MD Referring Physician [phone] N/A Events Post-Transplant Pre-Transplant Admitted: 06/14/2023 Referred: 01/30/2023 Transplanted: 06/14/2023 Evaluation began: 3 Discharged: 06/20/2023 Committee: 04/11/2023 Center waitlisted: 3
--- OUTSIDE RECORDS SUMMARY | 2025-03-06 13:03 | XMS_ITS | Encounter Summary ---
Author Organization [facility] Address [address] [place] [address] Phone Care Team Providers Care Pail Tester Name Role Phone Dion Hopper MD Unavailable [phone] Bhupendra Barr DO Primary Care Provider [phone] Deepali Carl RN Unavailable [phone] Marybeth Hernandez MD Unavailable Radha Carlson RN Unavailable Unavailable Phan Mccann MD Unavailable [phone] Encounter Details Date Type Department Care Team (Late st Contact Info) Description 02/11/2025 Results Follow-Up [facility] Medicine Nephrology [address] [facility] Advanced Medicine 5th [place] [address] [place] [address] Shay Perez MD [address] [place] [address] Cystatin C, Creatine kinase (CK), total, Renal function panel, Additional followed-up results: 2 Social History Tobacco Use Types Packs/Day Years [...] relatives? 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 Gender Identity Male 02/07/2023 10:43 AM CDT Sexual Orientation Straight 02/07/2023 10 :43 AM CDT documented as of this encounter Plan of Treatment Scheduled Procedures Name Priority Associated Diagnoses Date/Ti me TRANSPLANT LIVER Hepatocellular carcinoma (HCC) documented as of this encounter Visit Diagnoses Not on filedocumented in this encounter Care Teams Pail Tester Relationship Specialty Start Date End Date Bhupendra Barr DO [address] [facility] [place] [address] PCP - General Internal Medicine 05/22/23 Marybeth Hernandez [place] [id number] [place] [address] [place] [address] PCP - Home Infusion Attending Infectious Diseases 11/03/24 Dion Hopper MD [address] [facility] [place] [address] Referring Physician Gastroenterology 02/02/23 Deepali Carl, RN Post Acute Care Registered Nurse 06/15/23 Radha Carlson, [facility] Registered Nurse 03/06/25 Phan Mccann MD [address] [facility] [place] [address] Consulting Physician Radiology 03/06/25 documented as of this encounter
[2025-03-06 13:35] LABS: Add Urine Microscopic? YES; Appearance Urine Clear (Clear); Glucose Urine UA Trace mg/dL (Negative); Leukocyte Esterase Ur Negative LEU/UL (Negative); Nitrate Urine Negative (Negative); Non Pathogenic Casts 0-2; Specific Grav Ur 1.024 (1.001-1.035)
== END 2025-03-06 12:58 | disposition home or self-care (01) ==
LOC: ANHGOSHLAB 12:58
PROVIDERS: PCP Internal Medicine
DX: R30.0 Dysuria (principal)
CPT/HCPCS: 81001